=== PATIENT | male | born 1950 | race African-American/Black ===

== ENCOUNTER 2016-07-20 16:16 | Inpatient (IN) | payer MEDICARE, OTHER ==
[~2016-07-20] VITALS: Ht 182.9 cm; Wt 94.4 kg
[~2016-07-20 16:16] MED LIST: ALBU2.5V5 NEB; ALBU8.5H6 IH; ALBU8.5H6 INH; ATROVENT HFA12.9 GM IH; AZIT250T PO; BUDE10.2 IH; BUDE10.22 IH; CETI10TA22 PO; CIPR500T94 PO; DIAZ2TAB PO; DOXY100T PO; FLUT16SP NS; GUAI12003 PO; GUAI600T38 PO; IPRA3AMP23 IH; IPRA4AER IH; LEVO500T38 PO; MONT10TA6 PO; OXYC-323 PO; PRED-220 PO; PRED20TA PO; PRED5TAB PO; combivent; duoneb; symbicort
[2016-07-20 17:39] LABS: BASO # 0.1 x10^3/uL (0.0-0.2); BASO % 1 % (0-3); EOS % 12 % (0-3); HEMATOCRIT 45.7 % (39.0-53.0); HEMOGLOBIN 15.2 g/dL (13.0-17.5); LYMPH # 1.6 x10^3/uL (1.0-4.8); LYMPH % 25 % (24-48); MEAN CORPUSCULAR HEMOGLOBIN 29 pg (25-35); MEAN CORPUSCULAR HGB CONC 33 g/dL (31-37); MEAN CORPUSCULAR VOLUME 88 fL (79-100); MONO % 8 % (0-9); NEUT % 54 % (31-73); PLATELET COUNT 256 x10^3/uL (140-400); RED BLOOD COUNT 5.18 x10^6/uL (4.30-5.70); RED CELL DISTRIBUTION WIDTH 14.8 % (11.5-14.5); WHITE BLOOD COUNT 6.4 x10^3/uL (4.0-11.0)
[2016-07-20 17:46] LABS: CALCIUM 9.1 mg/dL (8.5-10.1); CREATININE 1.2 mg/dL (0.7-1.3); GFR 72.9
--- NOTE | 2016-07-20 17:48 | ED.ADGEN ---
Past Medical History Past Medical History: Cancer, CHF, COPD, Other Additional Past Medical Histor: seasonal allergies, PROSTATE CANCER, RESP FAILURE Past Surgical History: Other Additional Past Surgical Histo: craniotomy,hemorrhoidectomy,L knee, scar tissur removed throat/neck,back Alcohol Use: Occasionally Drug Use: None Adult General Chief Complaint Chief Complaint: SORE THROAT HPI HPI Patient is a 66 year old man, history of COPD, CHF, prostate cancer, hypertension, who presents to the emergency department with complaint of chest congestion and cough for the past week, with progressive shortness of breath. He denies any chest pain, states he has some abdominal pain with coughing, cough as wrecked above white sputum, denies any weakness in this or tingling, any injuries, states today he began today lightheaded at times with ambulation, no syncope. No swelling extremities, recent travel or surgery, history of DVT or PE. He states that he's previously experienced pneumonia and is concerned that is recurrent pneumonia at this time. He did not receive a flu vaccination this year. States he is not compliant with his inhalers other medications, without relief, was last admitted to the hospital for a COPD/bronchitis episode about 3 months ago and was on antibiotics and steroids at that time. Review of Systems Review of Systems Constitutional: Denies fever or chills. [] Eyes: Denies change in visual acuity. [] HENT: Nasal congestion and sore throat. [] Respiratory: Cough and shortness of breath. Cardiovascular: Denies chest pain or edema. [] GI: Denies abdominal pain, nausea, vomiting, bloody stools or diarrhea. [] : Denies dysuria. [] Musculoskeletal: Denies back pain or joint pain. [] Integument: Denies rash. [] Neurologic: Denies headache, focal weakness or sensory changes. [] Endocrine: Denies polyuria or polydipsia. [] Lymphatic: Denies swollen glands. [] Psychiatric: Denies depression or anxiety. [] Current Medications Current Medications Current Medications Medications (Trade) Dose Ordered Sig/Rohit Start Time Stop Time Status Last Admin Dose Admin Albuterol/ Ipratropium (Duoneb) 3 ml 1X ONCE 07/20/16 18:00 07/20/16 18:01 DC 07/20/16 18:11 3 ML Methylprednisolone Sodium Succinate (Solu-Medrol 125mg Vial) 125 mg 1X ONCE 1/8/17 18:00 07/20/16 18:01 DC 07/20/16 17:51 125 MG Allergies Allergies Allergies Coded Allergies Type Severity Reaction Last Updated Verified codeine Allergy Intermediate "i dont know they just tell me that" 04/03/15 Yes Physical Exam Physical Exam Constitutional: Well developed, well nourished, no acute distress, non-toxic appearance. [] HENT: Normocephalic, atraumatic, bilateral external ears normal, oropharynx moist, no oral exudates, nose normal. [] Eyes: PERRLA, EOMI, conjunctiva normal, no discharge. [] Neck: Normal range of motion, no tenderness, supple, no stridor. [] Cardiovascular:Heart rate regular rhythm, no murmur , S1, S2, no rubs or gallops. [] Lungs & Thorax: Patient with coarse breath sounds, rhonchi and wheezing scattered throughout.] No tenderness or crepitus. Abdomen: Bowel sounds normal, soft, no tenderness, no masses, no rebound, rigidity or guarding, no pulsatile masses. [] Skin: Warm, dry, no erythema, no rash. [] Back: No tenderness, no CVA tenderness. [] Extremities: No tenderness, no cyanosis, no clubbing, ROM intact, no edema. Negative Homans sign. [] Neurologic: Alert and oriented X 3, normal motor function, normal sensory function, no focal deficits noted. [] Psychologic: Affect normal, judgement normal, mood normal. [] Current Patient Data Vital Signs Vital Signs Date Time Temp Pulse Resp B/P Pulse Ox O2 Delivery O2 Flow Rate FiO2 07/20/16 18:12 91 Room Air 07/20/16 16:50 97.9 88 36 109/66 97.9 Lab Values Laboratory Tests Test 07/20/16 17:15 07/20/16 17:50 White Blood Count 6.4x10^3/uL (4.0-11.0) Red Blood Count 5.18x10^6/uL (4.30-5.70) Hemoglobin 15.2g/dL (13.0-17.5) Hematocrit 45.7% (39.0-53.0) Mean Corpuscular Volume 88fL (79-100) Mean Corpuscular Hemoglobin 29pg (25-35) Mean Corpuscular Hemoglobin Concent 33g/dL (31-37) Red Cell Distribution Width 14.8% (11.5-14.5) H Platelet Count 256x10^3/uL (140-400) Neutrophils (%) (Auto) 54% (31-73) Lymphocytes (%) (Auto) 25% (24-48) Monocytes (%) (Auto) 8% (0-9) Eosinophils (%) (Auto) 12% (0-3) H Basophils (%) (Auto) 1% (0-3) Neutrophils # (Auto) 3.4x10^3uL (1.8-7.7) Lymphocytes # (Auto) 1.6x10^3/uL (1.0-4.8) Monocytes # (Auto) 0.5x10^3/uL (0.0-1.1) Eosinophils # (Auto) 0.8x10^3/uL (0.0-0.7) H Basophils # (Auto) 0.1x10^3/uL (0.0-0.2) Sodium Level 142mmol/L (136-145) Potassium Level 4.0mmol/L (3.5-5.1) Chloride Level 103mmol/L (98-107) Carbon Dioxide Level 25mmol/L (21-32) Anion Gap 14 (6-14) Blood Urea Nitrogen 12mg/dL (8-26) Creatinine 1.2mg/dL (0.7-1.3) Estimated GFR (Cockcroft-Gault) 72.9 BUN/Creatinine Ratio 10 (6-20) Glucose Level 103mg/dL (70-99) H Calcium Level 9.1mg/dL (8.5-10.1) Total Bilirubin 0.8mg/dL (0.2-1.0) Aspartate Amino Transferase (AST) 19U/L (15-37) Alanine Aminotransferase (ALT) 20U/L (16-63) Alkaline Phosphatase 129U/L (46-116) H Troponin I Quantitative < 0.017ng/mL (0.000-0.055) DS-Jww-G-Type Natriuretic Peptide 100pg/mL (0-124) Total Protein 7.3g/dL (6.4-8.2) Albumin 3.9g/dL (3.4-5.0) Albumin/Globulin Ratio 1.1 (1.0-1.7) Influenza Type A Antigen Negative (NEGATIVE) Influenza Type B Antigen Negative (NEGATIVE) Laboratory Tests 07/20/16 17:15 Laboratory Tests 07/20/16 17:15 EKG EKG EC: Sinus rhythm, heart rate 78 beats/minute, low limb lead voltage, contour abnormalities noted in the anterior lateral leads, QTc of 476, GA 182, QRS is 78, moderate baseline artifact noted, but no ST elevations or depressions identified. Abnormal ECG, does not meet STEMI criteria. As interpreted by me. Radiology/Procedures Radiology/Procedures Chest x-ray: One view: Normal cardiac silhouette, hyperinflation, no infiltrates , no effusions, no soft tissue or bony abnormalities identified. As interpreted by me. Course & Med Decision Making Course & Med Decision Making Pertinent Labs and Imaging studies reviewed. (See chart for details) Patient noted to have dyspnea on exertion with mild tachypnea upon arrival, although his saturation is in the mid 90s. He did receive respiratory treatment , with evidence of significant coarse breath sounds bilaterally. Also received Solu-Medrol in the ED, x-ray telemetry studies obtained, and imaging laboratory studies do not reveal anything acutely concerning however after receiving this treatment, patient remains tachypnea, dyspnea, oxygen saturation drops down to 89% with any activity and patient complains of significant symptoms. Evaluation is consistent with likely COPD exacerbation from a viral illness, patient states that he is agreeable for admission to the hospital for management of his symptoms, and evaluation by pulmonary critical care, which is occurred previously when he has had similar episodes. Findings as above discussed with Dr. Rai, on-call for the patient's primary care provider Dr. De Los Santos, patient accepted to his service as a full admission to the medical telemetry floor, with supportive treatments, nebulizers, steroids, and supplemental oxygen as needed. Dragon Disclaimer Dragon Disclaimer This electronic medical record was generated, in whole or in part, using a voice recognition dictation system. Departure Impression: Primary Impression: COPD exacerbation Additional Impression: Viral illness Disposition: 09 ADMITTED INPATIENT Admitting Physician: Dagoberto Rai Condition: STABLE Problem Qualifiers RAHUL BLUNT DO Jul 20, 2016 17:48
[2016-07-20 17:51] LABS: ALBUMIN 3.9 g/dL (3.4-5.0); ALBUMIN/GLOBULIN RATIO 1.1 (1.0-1.7); TOTAL BILIRUBIN 0.8 mg/dL (0.2-1.0); TOTAL PROTEIN 7.3 g/dL (6.4-8.2)
[2016-07-20] MEDS ORDERED: methylPREDNISolone SOD SUCC PF 125 MG/2 ML VIAL. IV ONE (18:00)
[2016-07-20] MEDS ORDERED: IPRATRPIUM/ALBUTEROL 0.5/2.5MG 3 ML NEBU. NEB ONE (18:00)
[2016-07-20 18:21] LABS: OBC FLU VALID
--- NOTE | 2016-07-20 18:56 | EKG ---
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
[2016-07-20] MEDS ORDERED: ONDANSETRON PF 4 MG/2 ML VIAL. IV PRN (20:15)
[2016-07-20] MEDS ORDERED: ACETAMINOPHEN 325 MG TABLET. PO PRN (20:15)
[2016-07-20] MEDS: methylPREDNISolone SOD SUCC PF 40 MG/ML VIAL. IV SCH (21:37)
[2016-07-20 21:40] VITALS: BP 98/68
[2016-07-20 23:00] VITALS: BP 115/75
[2016-07-20] MEDS ORDERED: INFLUENZA VAX SCREEN BY RX. MC ONE (23:45)
[2016-07-21] MEDS ORDERED: ALBUTEROL SULFATE 2.5 MG/3 ML NEBU. NEB PRN (01:45)
[2016-07-21 03:00] VITALS: BP 96/60
[2016-07-21] MEDS: methylPREDNISolone SOD SUCC PF 40 MG/ML VIAL. IV SCH ×3 (05:09→20:36)
[2016-07-21 06:29] LABS: BASO % 0 % (0-3); EOS % 0 % (0-3); HEMATOCRIT 43.8 % (39.0-53.0); HEMOGLOBIN 14.7 g/dL (13.0-17.5); LYMPH # 0.7 x10^3/uL (1.0-4.8); LYMPH % 14 % (24-48); MEAN CORPUSCULAR HEMOGLOBIN 30 pg (25-35); MEAN CORPUSCULAR HGB CONC 34 g/dL (31-37); MEAN CORPUSCULAR VOLUME 88 fL (79-100); MONO % 2 % (0-9); NEUT % 84 % (31-73); PLATELET COUNT 264 x10^3/uL (140-400); RED BLOOD COUNT 4.98 x10^6/uL (4.30-5.70); RED CELL DISTRIBUTION WIDTH 14.5 % (11.5-14.5); WHITE BLOOD COUNT 4.7 x10^3/uL (4.0-11.0)
[2016-07-21 06:44] LABS: CALCIUM 9.2 mg/dL (8.5-10.1); CREATININE 1.1 mg/dL (0.7-1.3); GFR 80.5; POTASSIUM 4.8 mmol/L (3.5-5.1)
[2016-07-21 07:00] VITALS: BP 106/65
[2016-07-21] MEDS ORDERED: IPRATRPIUM/ALBUTEROL 0.5/2.5MG 3 ML NEBU. NEB SCH (08:00)
--- NOTE | 2016-07-21 08:07 | RAD ---
EXAM: Chest, single view. HISTORY: Shortness of air. COMPARISON: 05/15/2016. FINDINGS: A frontal view of the chest is obtained. There is no infiltrate, effusion or pneumothorax. The heart is normal in size. IMPRESSION: No acute pulmonary finding.
--- NOTE | 2016-07-21 08:40 | PDOC ---
Provider Note Provider Note See admission H&P dictation #[id number] Impression: 1. COPD acute exacerbation: 2. Allergic rhinitis: 3. History of prostate cancer: 4. History of substance abuse, none recently per patient: ROGER JENKINS MD Jul 21, 2016 08:40
[2016-07-21] MEDS ORDERED: FLU VACC QUAD 2016-17 (36MOS+)/PF 0.5 ML SYRINGE. VAX IM ONE (09:00)
[2016-07-21 11:00] VITALS: BP 109/63
[2016-07-21] MEDS: IPRATRPIUM/ALBUTEROL 0.5/2.5MG 3 ML NEBU. NEB SCH ×3 (11:21→20:37)
[2016-07-21 12:27] LABS: NEGATIVE OBC STREP NEG; POSITIVE OBC STREP POS
[2016-07-21 15:00] VITALS: BP 92/57
[2016-07-21] MEDS: MONTELUKAST SODIUM 10 MG TABLET. PO SCH (16:37)
[2016-07-21] MEDS: GUAIFENESIN DM 200MG/20MG 10 ML SYRUP. PO PRN ×2 (16:50→20:36)
[2016-07-21] MEDS: FLUTICASONE 50MCG/NASAL SPRAY 16GM BOTTLE. NS SCH (16:53)
[2016-07-21 19:00] VITALS: BP 94/60
[2016-07-21] MEDS: BUDESONIDE 0.5 MG/2 ML NEBU NEB SCH (20:37)
[2016-07-21 23:00] VITALS: BP 107/73
[2016-07-22 03:00] VITALS: BP 96/60
[2016-07-22] MEDS: GUAIFENESIN DM 200MG/20MG 10 ML SYRUP. PO PRN (03:55)
[2016-07-22] MEDS: methylPREDNISolone SOD SUCC PF 40 MG/ML VIAL. IV SCH ×3 (06:00→20:42)
[2016-07-22 07:00] VITALS: BP 107/70
[2016-07-22] MEDS: MONTELUKAST SODIUM 10 MG TABLET. PO SCH (07:27)
[2016-07-22] MEDS: FLUTICASONE 50MCG/NASAL SPRAY 16GM BOTTLE. NS SCH (07:27)
[2016-07-22] MEDS: BUDESONIDE 0.5 MG/2 ML NEBU NEB SCH ×2 (08:17→19:18)
[2016-07-22] MEDS: IPRATRPIUM/ALBUTEROL 0.5/2.5MG 3 ML NEBU. NEB SCH ×4 (08:17→19:18)
[2016-07-22 11:53] VITALS: BP 102/60
[2016-07-22 15:37] VITALS: BP 105/59
--- NOTE | 2016-07-22 16:44 | PDOC ---
SUBJECTIVE Subjective Cough is less. Still little bit productive at times. Still short of breath especially when up walking around. He has been able to ambulate some. Feels like he is making improvement. Eating and drinking okay. OBJECTIVE Vital Signs Vital Signs Date Time Temp Pulse Resp B/P Pulse Ox O2 Delivery O2 Flow Rate FiO2 07/22/16 15:37 97.9 104 17 105/59 92 Room Air 97.9 07/22/16 12:25 Room Air 07/22/16 11:53 97.9 100 18 102/60 93 Room Air 97.9 07/22/16 08:21 96 Room Air 07/22/16 08:19 96 Room Air 07/22/16 08:00 Room Air 07/22/16 07:00 97.7 89 18 107/70 89 Room Air 97.7 07/22/16 03:00 98.2 100 21 96/60 90 Room Air 98.2 07/21/16 23:00 98.9 86 19 107/73 90 Room Air 98.9 07/21/16 20:40 94 Room Air 07/21/16 20:38 94 Room Air 07/21/16 19:20 Room Air 07/21/16 19:00 99.2 101 19 94/60 88 Room Air 99.2 I & O Intake and Output 07/22/16 07:00 Intake Total 600 ml Balance 600 ml Intake Oral 600 ml # Voids 2 PHYSICAL EXAM Physical Exam General: No acute distress. Mental status: Alert and oriented. Chest: Decreased air movement throughout. Diffuse bilateral wheezes. No rales. CV: Normal rate. Regular rhythm. No murmur. Abdomen: Normal bowel sounds. Soft. Not distended. No tenderness. No guarding. No rebound. Extremities: No lower extremity edema ASSESSMENT/PLAN Assessment/Plan 1. COPD acute exacerbation: Making some improvement. Continue IV steroids. Continue frequent breathing treatments and inhaled steroids. Encouraged ambulation. See how he is doing tomorrow and possible discharge tomorrow or the next day if continues to make improvement. 2. Allergic rhinitis: Continue current medications. 3. History of prostate cancer: Stable. 4. History of substance abuse, none recently per patient: Stable. Problems: ROGER JENKINS MD Jul 22, 2016 16:44
[2016-07-22 19:00] VITALS: BP 105/61
[2016-07-22] MEDS: ZOLPIDEM 5 MG TABLET. PO PRN (22:16)
[2016-07-22 23:00] VITALS: BP 93/66
[2016-07-23 03:00] VITALS: BP 96/64
[2016-07-23] MEDS: methylPREDNISolone SOD SUCC PF 40 MG/ML VIAL. IV SCH ×3 (06:10→21:30)
[2016-07-23 07:50] VITALS: BP 111/66
[2016-07-23] MEDS: IPRATRPIUM/ALBUTEROL 0.5/2.5MG 3 ML NEBU. NEB SCH ×4 (08:09→19:47)
[2016-07-23] MEDS: BUDESONIDE 0.5 MG/2 ML NEBU NEB SCH ×2 (08:10→19:47)
--- NOTE | 2016-07-23 08:12 | PDOC ---
SUBJECTIVE Subjective Still short of breath with ambulation. Still with a cough that is minimally productive. Tolerating his diet without any difficulty. Voiding okay. OBJECTIVE Vital Signs Vital Signs Date Time Temp Pulse Resp B/P Pulse Ox O2 Delivery O2 Flow Rate FiO2 07/23/16 03:00 98.0 88 18 96/64 93 Room Air 98.0 07/22/16 23:00 97.6 97 18 93/66 93 Room Air 97.6 07/22/16 20:00 Room Air 07/22/16 19:18 99 Room Air 07/22/16 19:00 97.9 103 18 105/61 92 Room Air 97.9 07/22/16 16:59 Room Air 07/22/16 15:37 97.9 104 17 105/59 92 Room Air 97.9 07/22/16 12:25 Room Air 07/22/16 11:53 97.9 100 18 102/60 93 Room Air 97.9 07/22/16 08:21 96 Room Air 07/22/16 08:19 96 Room Air I & O Intake and Output 07/23/16 07:00 Intake Total 670 ml Balance 670 ml Intake Oral 670 ml # Voids 6 PHYSICAL EXAM Physical Exam General: No acute distress. Laying in bed. Mental status: Alert and oriented. Chest: Decreased air movement throughout. Diffuse bilateral wheezes, slightly less today. Coarse rales on the right mid chest. CV: Normal rate. Regular rhythm. No murmur. Abdomen: Normal bowel sounds. Soft. Not distended. No tenderness. No guarding. No rebound. Extremities: No lower extremity edema ASSESSMENT/PLAN Assessment/Plan 1. COPD acute exacerbation: Symptomatically some improvement but O2 sats a little bit worse. Continue IV steroids. Continue frequent breathing treatments and inhaled steroids. Encouraged ambulation. Repeat chest x-ray, PA and lateral , today since he is fairly coarse on the right side. 2. Allergic rhinitis: Continue current medications. 3. History of prostate cancer: Stable. 4. History of substance abuse, none recently per patient: Stable. 5. Disposition: We'll see how he does with ambulation today. May need to do 6 minute walk test prior to discharge. Most likely plan for discharge tomorrow. Problems: ROGER JENKINS MD Jul 23, 2016 08:12
--- NOTE | 2016-07-23 09:54 | RAD ---
EXAM: Chest, 2 views. HISTORY: Dyspnea. COMPARISON: 07/20/2016. FINDINGS: Frontal and lateral views of the chest are obtained. There is right lower lobe opacity likely due to atelectasis. There is no consolidation, effusion or pneumothorax. The heart is normal in size. IMPRESSION: No acute pulmonary finding.
[2016-07-23] MEDS: MONTELUKAST SODIUM 10 MG TABLET. PO SCH (10:00)
[2016-07-23] MEDS: FLUTICASONE 50MCG/NASAL SPRAY 16GM BOTTLE. NS SCH (10:00)
[2016-07-23 10:50] VITALS: BP 116/68
[2016-07-23 14:50] VITALS: BP 109/62
[2016-07-23 19:00] VITALS: BP 115/70
[2016-07-23] MEDS: ZOLPIDEM 5 MG TABLET. PO PRN (21:30)
[2016-07-23 23:00] VITALS: BP 120/80
[2016-07-24 03:00] VITALS: BP 103/58
[2016-07-24] MEDS: methylPREDNISolone SOD SUCC PF 40 MG/ML VIAL. IV SCH (05:40)
[2016-07-24 07:00] VITALS: BP 114/70
[2016-07-24] MEDS: IPRATRPIUM/ALBUTEROL 0.5/2.5MG 3 ML NEBU. NEB SCH ×2 (07:06→11:05)
[2016-07-24] MEDS: BUDESONIDE 0.5 MG/2 ML NEBU NEB SCH (07:06)
--- NOTE | 2016-07-24 07:41 | DISCH ---
DISCHARGE INSTRUCTIONS Condition on Discharge Condition on Discharge: Stable Activity After Discharge Activity Instructions for Disc: Activity as tolerated Diet after Discharge Diet after Discharge: Regular Contacting the DR. after DC Call your doctor for: If your condition worsens Follow-Up Follow up with: Dr Jenkins in 1 week. call for appt Treatment/Equipment after DC Discharge Respiratory Equipmen: Nebulizer (has at home) ROGER JENKINS MD Jul 24, 2016 07:41
[2016-07-24] MEDS ORDERED: IPRA3AMP NEB (07:48)
[2016-07-24] MEDS ORDERED: PRED20TA PO (07:48)
--- NOTE | 2016-07-24 08:03 | PDOC ---
Provider Note Provider Note See discharge summary dictation #[id number] ROGER JENKINS MD Jul 24, 2016 08:03
[2016-07-24] MEDS: FLUTICASONE 50MCG/NASAL SPRAY 16GM BOTTLE. NS SCH (08:42)
[2016-07-24] MEDS: MONTELUKAST SODIUM 10 MG TABLET. PO SCH (08:42)
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
[2016-07-24 11:11] VITALS: BP 112/56
--- NOTE | 2016-07-24 20:02 | DS ---
DATE OF DISCHARGE: 07/24/2016 ATTENDING PHYSICIAN: Roger Jenkins MD CHIEF COMPLAINT: Shortness of breath. HISTORY OF PRESENT ILLNESS: The patient is a 66-year-old male with a history of COPD and allergic rhinitis who had been worsening over the past week with his respiratory status. He became more short of breath. He was then exposed to significant cold temperatures outside for a period of time, which seemed to worsen his breathing and caused more dyspnea. He presented to the Emergency Room for further evaluation. HOSPITAL COURSE: The patient was seen in the Emergency Room. He was having oxygen saturations down to 89% when he tried to ambulate and had significant shortness of breath with that. EKG and troponins were negative. Chest x-ray did not show any acute infiltrate. His symptoms were consistent with recurrent acute exacerbation of his COPD. He was placed on nebulizer treatments frequently which he is not using at home as well as IV steroids. He had improvement in his symptoms. He had less wheezing. He was moving air better. He was able to ambulate without difficulty at the time of discharge. This cough was not significantly productive throughout the hospitalization. At the time of discharge, the patient was tolerating his diet without difficulty. He was ambulating in the hallways without supplemental oxygen. PHYSICAL EXAMINATION: VITAL SIGNS: He was afebrile. His vital signs were stable. GENERAL: He was alert, in no distress. CHEST: Had improved air movement. It was clear without any significant wheezes or rales. Repeat chest x-ray with PA and lateral did not show any infiltrate or abnormality except for possibly some atelectasis. HEART: Had a regular rate and rhythm. EXTREMITIES: Without edema. DISCHARGE DIAGNOSES. 1. Chronic obstructive pulmonary disease with acute exacerbation. 2. Allergic rhinitis. 3. History of prostate cancer. 4. History of substance abuse with cocaine, but none in the recent past. DISCHARGE DIET: Regular diet. DISCHARGE ACTIVITIES: As tolerated. FOLLOWUP: The patient is to follow up with myself in approximately 1 week. DISCHARGE MEDICATIONS: Symbicort 160/4.5 two puffs b.i.d., Flonase 2 sprays daily, DuoNeb q.i.d., Combivent b.i.d., Singulair 10 mg p.o. daily, prednisone 40 mg p.o. daily x 3 days, then 20 mg daily x 3 days, then 10 mg daily x 2 days. ROGER JENKINS MD DR: Rebeca JOB#: [id number] / [id number]
== END 2016-07-24 12:35 | disposition home or self-care (01) | DRG 189 ==
LOC: ER 16:16 → 5 NORTH 19:33
PROVIDERS: ADMIT Family Medicine; ATTEND Family Medicine
DX: J96.00 Acute respiratory failure, unspecified whether with hypoxia or hypercapnia (principal); J44.1 Chronic obstructive pulmonary disease with (acute) exacerbation; J30.9 Allergic rhinitis, unspecified; I11.0 Hypertensive heart disease with heart failure; I50.9 Heart failure, unspecified; M19.90 Unspecified osteoarthritis, unspecified site; Z80.0 Family history of malignant neoplasm of digestive organs; Z83.3 Family history of diabetes mellitus; Z85.46 Personal history of malignant neoplasm of prostate; Z86.010 Personal history of colon polyps; Z92.3 Personal history of irradiation; Z93.0 Tracheostomy status; Z87.01 Personal history of pneumonia (recurrent); Z88.6 Allergy status to analgesic agent
CPT/HCPCS: 36415; 71010; 71020; 80048; 80053; 83880; 84484; 85027; 87070; 87804; 87880; 90686; 93005; 94250; 94640; 94760; 96374; J2920; J2930; J7620; 99285-25

== ENCOUNTER 2016-09-04 21:57 | Inpatient (IN) | payer MEDICARE ==
[~2016-09-04] VITALS: Ht 182.9 cm; Wt 94.3 kg
[~2016-09-04 21:57] MED LIST changes: +IPRA3AMP NEB
[2016-09-04] MEDS ORDERED: IV NORMAL SALINE 1000ML BAG 1,000 ML IV ONE (22:15)
--- NOTE | 2016-09-04 22:17 | PHYS DOC ---
Past Medical History Past Medical History: Cancer, CHF, COPD, Other Additional Past Medical Histor: seasonal allergies, PROSTATE CANCER, RESP FAILURE Past Surgical History: Other Additional Past Surgical Histo: craniotomy,hemorrhoidectomy,L knee, scar tissur removed throat/neck,back Alcohol Use: Occasionally Drug Use: None Adult General Chief Complaint Chief Complaint: FLU SYMPTOM HPI HPI 66-year-old male with known history of COPD who states for the last several days he's had cough, headache, nausea with several episodes of vomiting and decreased appetite as well and diffuse body aches. He states he has been exposed to influenza over the last several days as well with several family members that tested positive. He claims significant chest pain and shortness of breath despite using his nebulizers at home. He rates his bodyaches and chest pain at a 6/10 on the pain scale. Pt is speaking in complete sentences and in no signs of respiratory distress at this time. Review of Systems Review of Systems Constitutional: Has fever and chills [] Eyes: Denies change in visual acuity, redness, or eye pain [] HENT: Denies nasal congestion or sore throat [] Respiratory: Has cough, has shortness of breath [] Cardiovascular: No additional information not addressed in HPI [] GI: Denies abdominal pain, nausea, vomiting, bloody stools or diarrhea [] : Denies dysuria or hematuria [] Musculoskeletal: Denies back pain, has joint pain [] Integument: Denies rash or skin lesions [] Neurologic: Denies headache, focal weakness or sensory changes [] Endocrine: Denies polyuria or polydipsia [] Current Medications Current Medications Current Medications Medications (Trade) Dose Ordered Sig/Rohit Start Time Stop Time Status Last Admin Dose Admin Sodium Chloride (Iv Sodium Chloride 0.9% 1000ml Bag) 1,000 ml @ 1,000 mls/hr 1X ONCE 09/04/16 22:15 09/04/16 23:14 DC 09/04/16 22:25 1,000 MLS/HR Allergies Allergies Allergies Coded Allergies Type Severity Reaction Last Updated Verified codeine Allergy Intermediate "i dont know they just tell me that" 04/03/15 Yes Physical Exam Physical Exam Constitutional: Well developed, well nourished, no acute distress, non-toxic appearance. [] HENT: Normocephalic, atraumatic, bilateral external ears normal, oropharynx moist, no oral exudates, nose normal. [] Eyes: PERRLA, EOMI, conjunctiva normal, no discharge. [] Neck: Normal range of motion, no tenderness, supple, no stridor. [] Cardiovascular:Heart rate tachycardic with regular rhythm, no murmur [] Lungs & Thorax: Bilateral expiratory wheezes heard with no significant respiratory distress [] Abdomen: Bowel sounds normal, soft, no tenderness, no masses, no pulsatile masses. [] Skin: Warm, dry, no erythema, no rash. [] Back: No tenderness, no CVA tenderness. [] Extremities: No tenderness, no cyanosis, no clubbing, ROM intact, no edema. [] Neurologic: Alert and oriented X 3, normal motor function, normal sensory function, no focal deficits noted. [] Psychologic: Affect normal, judgement normal, mood normal. [] Current Patient Data Vital Signs Vital Signs Date Time Temp Pulse Resp B/P Pulse Ox O2 Delivery O2 Flow Rate FiO2 09/04/16 22:06 99.9 115 18 123/91 96 Room Air 99.9 Lab Values Laboratory Tests Test 09/04/16 22:15 09/04/16 22:23 White Blood Count 5.3x10^3/uL (4.0-11.0) Red Blood Count 5.23x10^6/uL (4.30-5.70) Hemoglobin 15.2g/dL (13.0-17.5) Hematocrit 45.5% (39.0-53.0) Mean Corpuscular Volume 87fL (79-100) Mean Corpuscular Hemoglobin 29pg (25-35) Mean Corpuscular Hemoglobin Concent 33g/dL (31-37) Red Cell Distribution Width 14.6% (11.5-14.5) H Platelet Count 244x10^3/uL (140-400) Neutrophils (%) (Auto) 61% (31-73) Lymphocytes (%) (Auto) 22% (24-48) L Monocytes (%) (Auto) 13% (0-9) H Eosinophils (%) (Auto) 3% (0-3) Basophils (%) (Auto) 1% (0-3) Neutrophils # (Auto) 3.2x10^3uL (1.8-7.7) Lymphocytes # (Auto) 1.2x10^3/uL (1.0-4.8) Monocytes # (Auto) 0.7x10^3/uL (0.0-1.1) Eosinophils # (Auto) 0.1x10^3/uL (0.0-0.7) Basophils # (Auto) 0.1x10^3/uL (0.0-0.2) Sodium Level 139mmol/L (136-145) Potassium Level 3.9mmol/L (3.5-5.1) Chloride Level 102mmol/L (98-107) Carbon Dioxide Level 26mmol/L (21-32) Anion Gap 11 (6-14) Blood Urea Nitrogen 10mg/dL (8-26) Creatinine 1.3mg/dL (0.7-1.3) Estimated GFR (Cockcroft-Gault) 66.4 Glucose Level 104mg/dL (70-99) H Calcium Level 9.2mg/dL (8.5-10.1) Troponin I Quantitative < 0.017ng/mL (0.000-0.055) Influenza Type A Antigen Positive (NEGATIVE) Influenza Type B Antigen Negative (NEGATIVE) Laboratory Tests 09/04/16 22:15 Laboratory Tests 09/04/16 22:15 EKG EKG EKG as interpreted by me shows a sinus tachycardia with a rate of 105 bpm. Intervals are normal. There are no obvious signs of ischemia. Radiology/Procedures Radiology/Procedures Portable one view of the chest as interpreted by me shows no acute cardiopulmonary process. Course & Med Decision Making Course & Med Decision Making Pertinent Labs and Imaging studies reviewed. (See chart for details) This 66-year-old male with flulike illness and significant chest pain or shortness of breath likely be admitted to the hospital for further evaluation and treatment. I will obtain full laboratory workup including influenza swabs. A DuoNeb will be administered as well as a fluid bolus and Zofran. I will obtain a chest x-ray. His EKG at this time does not reveal any overt signs of ischemia. Portable one view of his chest was unremarkable. His laboratory workup is unrevealing besides positive influenza A swab. Patient is still symptomatically short of breath and will be admitted with a dose of Tamiflu given. IV steroids will also be ordered. I will order repeat troponins for the floor for his ongoing chest pain as well as as needed DuoNeb therapy. The need for admission will be communicated to Dr. Avery. Pt was given multiple breathing treatments and a dose of Tamiflu while in the department. He was admitted without incident. Dragon Disclaimer Dragon Disclaimer This electronic medical record was generated, in whole or in part, using a voice recognition dictation system. Departure Departure Impression: Primary Impression: Influenza A Additional Impression: COPD exacerbation Disposition: ADMITTED INPATIENT Admitting Physician: Roger Jenkins Condition: STABLE Referrals: ROGER JENKINS MD (PCP) Problem Qualifiers IAN CHURCH DO Sep 04, 2016 22:16
[2016-09-04 22:22] LABS: BASO # 0.1 x10^3/uL (0.0-0.2); BASO % 1 % (0-3); EOS % 3 % (0-3); HEMATOCRIT 45.5 % (39.0-53.0); HEMOGLOBIN 15.2 g/dL (13.0-17.5); LYMPH # 1.2 x10^3/uL (1.0-4.8); LYMPH % 22 % (24-48); MEAN CORPUSCULAR HEMOGLOBIN 29 pg (25-35); MEAN CORPUSCULAR HGB CONC 33 g/dL (31-37); MEAN CORPUSCULAR VOLUME 87 fL (79-100); MONO % 13 % (0-9); NEUT % 61 % (31-73); PLATELET COUNT 244 x10^3/uL (140-400); RED BLOOD COUNT 5.23 x10^6/uL (4.30-5.70); RED CELL DISTRIBUTION WIDTH 14.6 % (11.5-14.5); WHITE BLOOD COUNT 5.3 x10^3/uL (4.0-11.0)
[2016-09-04] MEDS ORDERED: ONDANSETRON PF 4 MG/2 ML VIAL. IV ONE (22:30)
[2016-09-04] MEDS ORDERED: IPRATRPIUM/ALBUTEROL 0.5/2.5MG 3 ML NEBU. NEB ONE ×2 (22:30→23:15)
[2016-09-04] MEDS ORDERED: KETOROLAC TROMETHAMINE 30 MG/ML SYRINGE. IV ONE (22:30)
[2016-09-04 22:32] LABS: CALCIUM 9.2 mg/dL (8.5-10.1); CREATININE 1.3 mg/dL (0.7-1.3); GFR 66.4; POTASSIUM 3.9 mmol/L (3.5-5.1)
[2016-09-04 22:47] LABS: OBC FLU VALID
[2016-09-04] MEDS ORDERED: OSELTAMIVIR 75 MG CAPSULE PO ONE (23:00)
[2016-09-04] MEDS ORDERED: ONDANSETRON PF 4 MG/2 ML VIAL. IV PRN (23:00)
[2016-09-04] MEDS ORDERED: methylPREDNISolone SOD SUCC PF 125 MG/2 ML VIAL. IV ONE (23:15)
[2016-09-05] VITALS (7 sets, daily range): BP systolic 110–121; BP diastolic 55–80
[2016-09-05] MEDS: IV NORMAL SALINE 1000ML BAG 1,000 ML IV SCH ×3 (00:47→20:13)
--- NOTE | 2016-09-05 06:27 | EKG ---
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
[2016-09-05 06:56] LABS: BASO % 1 % (0-3); EOS % 0 % (0-3); HEMATOCRIT 44.4 % (39.0-53.0); HEMOGLOBIN 14.5 g/dL (13.0-17.5); LYMPH # 0.4 x10^3/uL (1.0-4.8); LYMPH % 9 % (24-48); MEAN CORPUSCULAR HEMOGLOBIN 29 pg (25-35); MEAN CORPUSCULAR HGB CONC 33 g/dL (31-37); MEAN CORPUSCULAR VOLUME 88 fL (79-100); MONO % 2 % (0-9); NEUT % 89 % (31-73); PLATELET COUNT 225 x10^3/uL (140-400); RED BLOOD COUNT 5.04 x10^6/uL (4.30-5.70)
[2016-09-05 07:19] LABS: CALCIUM 9.1 mg/dL (8.5-10.1); CREATININE 1.3 mg/dL (0.7-1.3); GFR 66.4; POTASSIUM 5.1 mmol/L (3.5-5.1)
--- NOTE | 2016-09-05 07:34 | RAD ---
EXAM: Chest one view. HISTORY: Flu like symptoms. COMPARISON: 07/23/2016. FINDINGS: A frontal view of the chest is obtained. There are mild interstitial opacities in the bases. There is no pneumothorax or pleural effusion. The heart is not enlarged. The aorta is tortuous. There are changes of chronic injury to the left coracoclavicular ligament. IMPRESSION: 1. Mild bibasilar interstitial opacities may indicate atelectasis. No confluent infiltrates.
[2016-09-05] MEDS ORDERED: IPRATRPIUM/ALBUTEROL 0.5/2.5MG 3 ML NEBU. NEB SCH (08:00)
[2016-09-05] MEDS ORDERED: ALBUTEROL SULFATE 2.5 MG/3 ML NEBU. NEB PRN (08:30)
--- NOTE | 2016-09-05 08:33 | PDOC1 ---
History and Physical Date of Admission Date of Admission DATE: 09/04/16 Identification/Chief Complaint Chief Complaint Cough, not feeling well Source Source: Patient History of Present Illness History of Present Illness Pt states that he has been sick since Thursday; cough was not improving, neither were his body aches and headaches so pt came to the ER. Pt tested positive for Flu A; states that he was around 2 friends that had been hospitalized for Influenza recently. He has had fevers, chills, sore throat, runny nose with clear to yellow drainage, cough that is productive with same color sputum, abdominal pain, nausea, vomiting and diarrhea. He last had vomiting and diarrhea this last Thursday. Past Medical History Cardiovascular: No pertinent hx Pulmonary: COPD, Previously Intubated, Pneumonia, Other CENTRAL NERVOUS SYSTEM: Seizure, Other GI: Hemorrhoids, Other Heme/Onc: No pertinent hx Hepatobiliary: No pertinent hx Psych: No pertinent hx Musculoskeletal: Osteoarthritis, Other Rheumatologic: No pertinent hx Infectious disease: No pertinent hx ENT: No pertinent hx Renal/: Prostate Ca., Other Endocrine: No pertinent hx Dermatology: No pertinent hx Past Surgical History Past Surgical History: Other (Craniotomy, Left knee surgery, tracheostomy with revision x2, hemorrhoidectomy) Family History Family History: Chronic Bronchitis (father), Diabetes (sister), Other (Lupus- mother, sister) Social History Smoke: Quit ALCOHOL: occassional Drugs: Cocaine Current Problem List Problem List Problems Medical Problems: (1) COPD exacerbation Status: Acute (2) Influenza A Status: Acute Problems: Current Medications Current Medications Current Medications Albuterol/ Ipratropium (Duoneb) 3 ml 1X ONCE NEB Last administered on 22:31; Start 09/04/16 at 22:30; Stop 09/04/16 at 22:31; Status DC Ondansetron HCl (Zofran) 4 mg 1X ONCE IV Last administered on 09/04/16 22:25 ; Start 09/04/16 at 22:30; Stop 09/04/16 at 22:31; Status DC Ketorolac Tromethamine 30 mg 30 mg 1X ONCE IV Last administered on 09/04/16 22:25; Start 09/04/16 at 22:30; Stop 09/04/16 at 22:31; Status DC Sodium Chloride (Iv Sodium Chloride 0.9% 1000ml Bag) 1,000 ml @ 1,000 mls/hr 1X ONCE IV Last administered on 09/04/16 22:25; Start 09/04/16 at 22:15; Stop 09/04/16 at 23:14; Status DC Oseltamivir Phosphate (Tamiflu) 75 mg ONCE ONCE PO Last administered on 23:12; Start 09/04/16 at 23:00; Stop 09/04/16 at 23:01; Status DC Ondansetron HCl 4 mg 4 mg PRN Q8HRS PRN IV NAUSEA/VOMITING; Start 09/04/16 at 23:00; Stop 09/05/16 at 22:59 Sodium Chloride (Iv Sodium Chloride 0.9% 1000ml Bag) 1,000 ml @ 100 mls/hr Q10H IV Last administered on 09/05/16 00:47; Start 09/04/16 at 23:00; Stop at 22:59 Albuterol/ Ipratropium (Duoneb) 3 ml RTQID NEB Last administered on 09/05/16 08:10; Start 09/05/16 at 08:00; Stop 09/06/16 at 07:59 Albuterol/ Ipratropium (Duoneb) 3 ml 1X ONCE NEB Last administered on 23:23; Start 09/04/16 at 23:15; Stop 09/04/16 at 23:16; Status DC Methylprednisolone Sodium Succinate (Solu-Medrol 125mg Vial) 125 mg 1X ONCE IV Last administered on 09/04/16 23:12; Start 09/04/16 at 23:15; Stop 09/04/16 at 23:16; Status DC Active Scripts Active Duoneb 0.5-3(2.5) Mg/3 Ml (Albuterol/Ipratropium) 3 Ml Ampul.neb 3 Ml NEB RTQID Symbicort 160-4.5 Mcg Inhaler (Budesonide/Formoterol Fumarate) 10.2 Gm Hfa.aer.ad 2 Puff IH BID Fluticasone Propionate Nasal Bloomingrose (Fluticasone Propionate) 1 Bloomingrose Bloomingrose 2 Bloomingrose NS DAILY Singulair Tablet (Montelukast Sodium) 10 Mg Tablet 10 Mg PO DAILY Reported Combivent Respimat Inhal (Ipratropium/Albuterol Sulfate) 4 Gm Aer.w.adap 1 Puff IH QID Allergies Allergies: Coded Allergies: codeine (Verified Allergy, Intermediate, "i dont know they just tell me that", 04/03/15) ROS General: YES: Chills, Fatigue, Night Sweats PSYCHOLOGICAL ROS: No: Anxiety, Depression Eyes: No Decreased vision, No Eye Pain HEENT: YES: Nasal congestion, Sore Throat ALLERGY AND IMMUNOLOGY: No: Hives, Post Nasal Drip Hematological and Lymphatic: No: Bleeding Problems, Blood Clots Respiratory: YES: Cough, Shortness of breath, Sputum Changes, Wheezing Cardiovascular: No Chest Pain, No Edema, No Palpitations Gastrointestinal: Yes Abdominal Pain, Yes Diarrhea, Yes Nausea, Yes Vomiting Genitourinary: No Dysuria, No Urgency Musculoskeletal: Yes Muscle Pain, No Joint Pain Neurological: No Impaired Coord/balance, No Numbness/Tingling Skin: No Rash, No Skin Lesion Changes Physical Exam General: Alert, Oriented X3, Cooperative, No acute distress HEENT: Atraumatic, PERRLA, EOMI, Mucous membr. moist/pink Lungs: Other (rhonchi throughout, more bilateral upper lobes) Heart: RRR, no rubs, no gallops, no murmurs Abdomen: Normal bowel sounds, Soft, No tenderness, No hepatosplenomegaly Extremities: No clubbing, No cyanosis, No edema, Normal pulses Skin: No rashes, No breakdown Neuro: Normal speech, Normal tone, Cranial nerves 3-12 NL Psych/Mental Status: Mental status NL, Mood NL Vitals Vitals Vital Signs Date Time Temp Pulse Resp B/P Pulse Ox O2 Delivery O2 Flow Rate FiO2 09/05/16 07:25 96.4 78 20 120/80 93 Room Air 96.4 Labs Labs Laboratory Tests Test 09/04/16 22:15 09/04/16 22:23 09/05/16 06:30 White Blood Count 5.3x10^3/uL (4.0-11.0) 5.0x10^3/uL (4.0-11.0) Red Blood Count 5.23x10^6/uL (4.30-5.70) 5.04x10^6/uL (4.30-5.70) Hemoglobin 15.2g/dL (13.0-17.5) 14.5g/dL (13.0-17.5) Hematocrit 45.5% (39.0-53.0) 44.4% (39.0-53.0) Mean Corpuscular Volume 87fL (79-100) 88fL (79-100) Mean Corpuscular Hemoglobin 29pg (25-35) 29pg (25-35) Mean Corpuscular Hemoglobin Concent 33g/dL (31-37) 33g/dL (31-37) Red Cell Distribution Width 14.6% (11.5-14.5) 15.0% (11.5-14.5) Platelet Count 244x10^3/uL (140-400) 225x10^3/uL (140-400) Neutrophils (%) (Auto) 61% (31-73) 89% (31-73) Lymphocytes (%) (Auto) 22% (24-48) 9% (24-48) Monocytes (%) (Auto) 13% (0-9) 2% (0-9) Eosinophils (%) (Auto) 3% (0-3) 0% (0-3) Basophils (%) (Auto) 1% (0-3) 1% (0-3) Neutrophils # (Auto) 3.2x10^3uL (1.8-7.7) 4.4x10^3uL (1.8-7.7) Lymphocytes # (Auto) 1.2x10^3/uL (1.0-4.8) 0.4x10^3/uL (1.0-4.8) Monocytes # (Auto) 0.7x10^3/uL (0.0-1.1) 0.1x10^3/uL (0.0-1.1) Eosinophils # (Auto) 0.1x10^3/uL (0.0-0.7) 0.0x10^3/uL (0.0-0.7) Basophils # (Auto) 0.1x10^3/uL (0.0-0.2) 0.0x10^3/uL (0.0-0.2) Sodium Level 139mmol/L (136-145) 140mmol/L (136-145) Potassium Level 3.9mmol/L (3.5-5.1) 5.1mmol/L (3.5-5.1) Chloride Level 102mmol/L (98-107) 105mmol/L (98-107) Carbon Dioxide Level 26mmol/L (21-32) 23mmol/L (21-32) Anion Gap 11 (6-14) 12 (6-14) Blood Urea Nitrogen 10mg/dL (8-26) 12mg/dL (8-26) Creatinine 1.3mg/dL (0.7-1.3) 1.3mg/dL (0.7-1.3) Estimated GFR (Cockcroft-Gault) 66.4 66.4 Glucose Level 104mg/dL (70-99) 176mg/dL (70-99) Calcium Level 9.2mg/dL (8.5-10.1) 9.1mg/dL (8.5-10.1) Troponin I Quantitative < 0.017ng/mL (0.000-0.055) < 0.017ng/mL (0.000-0.055) Influenza Type A Antigen Positive (NEGATIVE) Influenza Type B Antigen Negative (NEGATIVE) Laboratory Tests Test 09/04/16 22:15 09/04/16 22:23 09/05/16 06:30 White Blood Count 5.3x10^3/uL (4.0-11.0) 5.0x10^3/uL (4.0-11.0) Red Blood Count 5.23x10^6/uL (4.30-5.70) 5.04x10^6/uL (4.30-5.70) Hemoglobin 15.2g/dL (13.0-17.5) 14.5g/dL (13.0-17.5) Hematocrit 45.5% (39.0-53.0) 44.4% (39.0-53.0) Mean Corpuscular Volume 87fL (79-100) 88fL (79-100) Mean Corpuscular Hemoglobin 29pg (25-35) 29pg (25-35) Mean Corpuscular Hemoglobin Concent 33g/dL (31-37) 33g/dL (31-37) Red Cell Distribution Width 14.6% (11.5-14.5) 15.0% (11.5-14.5) Platelet Count 244x10^3/uL (140-400) 225x10^3/uL (140-400) Neutrophils (%) (Auto) 61% (31-73) 89% (31-73) Lymphocytes (%) (Auto) 22% (24-48) 9% (24-48) Monocytes (%) (Auto) 13% (0-9) 2% (0-9) Eosinophils (%) (Auto) 3% (0-3) 0% (0-3) Basophils (%) (Auto) 1% (0-3) 1% (0-3) Neutrophils # (Auto) 3.2x10^3uL (1.8-7.7) 4.4x10^3uL (1.8-7.7) Lymphocytes # (Auto) 1.2x10^3/uL (1.0-4.8) 0.4x10^3/uL (1.0-4.8) Monocytes # (Auto) 0.7x10^3/uL (0.0-1.1) 0.1x10^3/uL (0.0-1.1) Eosinophils # (Auto) 0.1x10^3/uL (0.0-0.7) 0.0x10^3/uL (0.0-0.7) Basophils # (Auto) 0.1x10^3/uL (0.0-0.2) 0.0x10^3/uL (0.0-0.2) Sodium Level 139mmol/L (136-145) 140mmol/L (136-145) Potassium Level 3.9mmol/L (3.5-5.1) 5.1mmol/L (3.5-5.1) Chloride Level 102mmol/L (98-107) 105mmol/L (98-107) Carbon Dioxide Level 26mmol/L (21-32) 23mmol/L (21-32) Anion Gap 11 (6-14) 12 (6-14) Blood Urea Nitrogen 10mg/dL (8-26) 12mg/dL (8-26) Creatinine 1.3mg/dL (0.7-1.3) 1.3mg/dL (0.7-1.3) Estimated GFR (Cockcroft-Gault) 66.4 66.4 Glucose Level 104mg/dL (70-99) 176mg/dL (70-99) Calcium Level 9.2mg/dL (8.5-10.1) 9.1mg/dL (8.5-10.1) Troponin I Quantitative < 0.017ng/mL (0.000-0.055) < 0.017ng/mL (0.000-0.055) Influenza Type A Antigen Positive (NEGATIVE) Influenza Type B Antigen Negative (NEGATIVE) VTE Prophylaxis Ordered VTE Prophylaxis Devices: Yes VTE Pharmacological Prophylaxi: Yes Assessment/Plan Assessment/Plan Pt is a 66yo AAM admitted for COPD Exacerbation 2/2 Influenza A 1)COPD Exacerbation- 2/2 Influenza A. Will start Prednisone and Tamiflu. Pt feeling better but does not feel ready to go home. Will hold off on antibiotics for now and not start if pt continues to improve 2)Hyperglycemia- likely 2/2 steroids. HbA1C pending DAJUAN GOMEZ MD Sep 05, 2016 08:33
[2016-09-05] MEDS: PREDNISONE 10 MG TABLET PO SCH (09:11)
[2016-09-05] MEDS: OSELTAMIVIR 75 MG CAPSULE PO SCH ×2 (09:13→20:12)
[2016-09-05] MEDS: MONTELUKAST SODIUM 10 MG TABLET. PO SCH (10:11)
[2016-09-05] MEDS: FLUTICASONE 50MCG/NASAL SPRAY 16GM BOTTLE. NS SCH (10:11)
[2016-09-05] MEDS: ACETAMINOPHEN 325 MG TABLET. PO PRN (10:12)
[2016-09-05] MEDS: BUDESONIDE 0.5 MG/2 ML NEBU NEB SCH ×2 (11:34→19:03)
[2016-09-05] MEDS: IPRATRPIUM/ALBUTEROL 0.5/2.5MG 3 ML NEBU. NEB SCH ×3 (11:42→19:03)
[2016-09-05 12:55] LABS: PLT ESTIMATE ADEQUATE (ADEQUATE)
--- NOTE | 2016-09-05 22:18 | ACF ---
Admission Forms Criteria COPD Clinical Indications for Admission to Inpatient Care (Place 'X' for any and all applicable criteria): Admission is indicated for ANY ONE of the following (1)(2)(3): [X]I. Acute exacerbation by high-risk comorbidity (e.g., pneumonia, dysrhythmia, heart failure, pleural effusion, pneumothorax) or severe underlying COPD (e.g., steroid dependent) [ ]II. Inpatient admission required rather than observation care (see Chronic Obstructive Pulmonary Disease: Observation Care) because of ANY ONE of the following: [ ]a) New or pre-existing signs or symptoms of COPD (eg, dyspnea or Tachypnea at rest or with minimal activity) that persist despite outpatient and observation care treatment [ ]b) New-onset hypoxemia (room air SaO2 less than 90%, PO2 less than 60 mm Hg (8.0 kPa)) that persists despite outpatient and observation care treatment [ ]c) Worsening of pre-existing hypoxemia (eg, new or increased requirement for supplemental oxygen to maintain oxygenation at baseline level) that persists despite outpatient and observation care treatment, with oxygen treatment needs performable only in acute inpatient setting [ ]d) Hypercarbia (PCO2 greater than 40 mm Hg (5.3 kPa))-induced respiratory acidosis (pH less than 7.35) that persists despite outpatient and observation care treatment [ ]e) Supplemental oxygen or respiratory treatments for over 24 hours that are performable only in acute inpatient setting [ ]f) Chest tube placement with active evacuation (e.g., suction, drainage) (5) [ ]g) Other condition, treatment or monitoring requiring inpatient admission [ ]III. Planned invasive surgical or diagnostic procedures requiring acute- care hospitalization [ ]IV. Acute respiratory failure (e.g., uncompensated hypercarbia, severe hypoxemia) [ ]V. Severe comorbid condition (e.g., severe steroid myopathy, acute vertebral fracture) that has acutely worsened pulmonary function [ ]. Confusion state, lethargy, obtundation, stupor or coma Extended stay beyond goal length of stay may be needed for (31)(32): [ ]a ) Respiratory Failure. [ ]b) Severe or persisting hypoxemia or hypercarbia [ ]c) Severe or persistent dyspnea [ ]d) Comorbidities (e.g. chronic heart failure, atrial fibrillation with rapid response, pneumonia) [ ]e) Malnutrition The original [facility] content created by [facility] has been revised. The portions of the content which have been revised are identified through the use of italic text or in bold, and [facility] has neither reviewed nor approved the modified material. All other unmodified content is copyright [facility]. Please see references footnoted in the original [facility] edition 2016 Admission Criteria Met?: Yes MATT ESQUEDA Sep 05, 2016 22:18
[2016-09-06] MEDS ORDERED: ZOLPIDEM 5 MG TABLET. PO PRN (01:15)
[2016-09-06 03:00] VITALS: BP 108/61
[2016-09-06 07:48] VITALS: BP 100/71
[2016-09-06] MEDS: IPRATRPIUM/ALBUTEROL 0.5/2.5MG 3 ML NEBU. NEB SCH ×4 (08:41→19:24)
[2016-09-06] MEDS: BUDESONIDE 0.5 MG/2 ML NEBU NEB SCH ×2 (08:41→19:24)
[2016-09-06] MEDS: PREDNISONE 10 MG TABLET PO SCH (08:49)
[2016-09-06] MEDS: OSELTAMIVIR 75 MG CAPSULE PO SCH ×2 (08:49→21:22)
[2016-09-06] MEDS: MONTELUKAST SODIUM 10 MG TABLET. PO SCH (08:49)
[2016-09-06] MEDS: FLUTICASONE 50MCG/NASAL SPRAY 16GM BOTTLE. NS SCH (08:49)
[2016-09-06 10:57] VITALS: BP 99/66
--- NOTE | 2016-09-06 13:59 | PDOC ---
PROGRESS NOTES Subjective Subjective Patient reports he still feels he is wheezing. Not able to sleep with the Ambien 5mg last night. Objective Objective Vital Signs Date Time Temp Pulse Resp B/P Pulse Ox O2 Delivery O2 Flow Rate FiO2 09/06/16 11:25 95 Room Air 09/06/16 10:57 98.6 93 20 99/66 98.6 Intake and Output 09/06/16 07:00 Intake Total 2380 ml Output Total 2950 ml Balance -570 ml Intake Oral 2380 ml Output Urine Total 2950 ml # Voids 3 Physical Exam Abdomen: Normal bowel sounds, Soft, No tenderness Heart: Regular rate Extremities: No edema General: Alert, Oriented X3, No acute distress Lungs: Other (Moderate coarse BS and expiratory wheezes throughout) Assessment Assessment Problems Medical Problems: (1) COPD exacerbation Status: Acute (2) Influenza A Status: Acute Plan Plan of Care 1. Influenza A - stable, continue Tamiflu. No pneumonia on CXR at admission. 2. AE COPD - patient is not hypoxic but chest exam shows significant wheezing. Will increase steroids to Solumedrol, continue nebs. 3. AR - stable, continue home meds. 4. hyperglycemia - A1C is 5.5 No tx presently indicated. 5. insomnia - increase Ambien to 10mg prn. Comment Review of Relevant I have reviewed the following items coral (where applicable) has been applied. Labs Laboratory Tests Test 09/04/16 22:15 09/04/16 22:23 09/05/16 06:30 09/05/16 13:05 White Blood Count 5.3x10^3/uL (4.0-11.0) 5.0x10^3/uL (4.0-11.0) Red Blood Count 5.23x10^6/uL (4.30-5.70) 5.04x10^6/uL (4.30-5.70) Hemoglobin 15.2g/dL (13.0-17.5) 14.5g/dL (13.0-17.5) Hematocrit 45.5% (39.0-53.0) 44.4% (39.0-53.0) Mean Corpuscular Volume 87fL (79-100) 88fL (79-100) Mean Corpuscular Hemoglobin 29pg (25-35) 29pg (25-35) Mean Corpuscular Hemoglobin Concent 33g/dL (31-37) 33g/dL (31-37) Red Cell Distribution Width 14.6% (11.5-14.5) 15.0% (11.5-14.5) Platelet Count 244x10^3/uL (140-400) 225x10^3/uL (140-400) Neutrophils (%) (Auto) 61% (31-73) 89% (31-73) Lymphocytes (%) (Auto) 22% (24-48) 9% (24-48) Monocytes (%) (Auto) 13% (0-9) 2% (0-9) Eosinophils (%) (Auto) 3% (0-3) 0% (0-3) Basophils (%) (Auto) 1% (0-3) 1% (0-3) Neutrophils # (Auto) 3.2x10^3uL (1.8-7.7) 4.4x10^3uL (1.8-7.7) Lymphocytes # (Auto) 1.2x10^3/uL (1.0-4.8) 0.4x10^3/uL (1.0-4.8) Monocytes # (Auto) 0.7x10^3/uL (0.0-1.1) 0.1x10^3/uL (0.0-1.1) Eosinophils # (Auto) 0.1x10^3/uL (0.0-0.7) 0.0x10^3/uL (0.0-0.7) Basophils # (Auto) 0.1x10^3/uL (0.0-0.2) 0.0x10^3/uL (0.0-0.2) Sodium Level 139mmol/L (136-145) 140mmol/L (136-145) Potassium Level 3.9mmol/L (3.5-5.1) 5.1mmol/L (3.5-5.1) Chloride Level 102mmol/L (98-107) 105mmol/L (98-107) Carbon Dioxide Level 26mmol/L (21-32) 23mmol/L (21-32) Anion Gap 11 (6-14) 12 (6-14) Blood Urea Nitrogen 10mg/dL (8-26) 12mg/dL (8-26) Creatinine 1.3mg/dL (0.7-1.3) 1.3mg/dL (0.7-1.3) Estimated GFR (Cockcroft-Gault) 66.4 66.4 Glucose Level 104mg/dL (70-99) 176mg/dL (70-99) Calcium Level 9.2mg/dL (8.5-10.1) 9.1mg/dL (8.5-10.1) Troponin I Quantitative < 0.017ng/mL (0.000-0.055) < 0.017ng/mL (0.000-0.055) < 0.017ng/mL (0.000-0.055) Influenza Type A Antigen Positive (NEGATIVE) Influenza Type B Antigen Negative (NEGATIVE) Segmented Neutrophils % 75% (35-66) Band Neutrophils % 19% (0-9) Lymphocytes % 5% (24-48) Atypical Lymphocytes % (Manual) 1% (0-0) Platelet Estimate Adequate (ADEQUATE) Hemoglobin A1c 5.5% (4.8-5.6) Medications Current Medications Albuterol/ Ipratropium (Duoneb) 3 ml 1X ONCE NEB Last administered on 22:31; Start 09/04/16 at 22:30; Stop 09/04/16 at 22:31; Status DC Ondansetron HCl (Zofran) 4 mg 1X ONCE IV Last administered on 09/04/16 22:25 ; Start 09/04/16 at 22:30; Stop 09/04/16 at 22:31; Status DC Ketorolac Tromethamine 30 mg 30 mg 1X ONCE IV Last administered on 09/04/16 22:25; Start 09/04/16 at 22:30; Stop 09/04/16 at 22:31; Status DC Sodium Chloride (Iv Sodium Chloride 0.9% 1000ml Bag) 1,000 ml @ 1,000 mls/hr 1X ONCE IV Last administered on 09/04/16 22:25; Start 09/04/16 at 22:15; Stop 09/04/16 at 23:14; Status DC Oseltamivir Phosphate (Tamiflu) 75 mg ONCE ONCE PO Last administered on 23:12; Start 09/04/16 at 23:00; Stop 09/04/16 at 23:01; Status DC Ondansetron HCl 4 mg 4 mg PRN Q8HRS PRN IV NAUSEA/VOMITING; Start 09/04/16 at 23:00; Stop 09/05/16 at 22:59; Status DC Sodium Chloride (Iv Sodium Chloride 0.9% 1000ml Bag) 1,000 ml @ 100 mls/hr Q10H IV Last administered on 09/05/16 20:13; Start 09/04/16 at 23:00; Stop at 22:59; Status DC Albuterol/ Ipratropium (Duoneb) 3 ml RTQID NEB Last administered on 09/05/16 08:10; Start 09/05/16 at 08:00; Stop 09/05/16 at 09:51; Status DC Albuterol/ Ipratropium (Duoneb) 3 ml 1X ONCE NEB Last administered on 23:23; Start 09/04/16 at 23:15; Stop 09/04/16 at 23:16; Status DC Methylprednisolone Sodium Succinate (Solu-Medrol 125mg Vial) 125 mg 1X ONCE IV Last administered on 09/04/16 23:12; Start 09/04/16 at 23:15; Stop 09/04/16 at 23:16; Status DC Prednisone (Prednisone) 50 mg DAILY PO Last administered on 09/06/16 08:49; Start 09/05/16 at 09:00 Albuterol Sulfate (Ventolin Neb Soln) 2.5 mg PRN Q4HRS PRN NEB SHORTNESS OF BREATH Last administered on 09/05/16 23:44; Start 09/05/16 at 08:30 Oseltamivir Phosphate (Tamiflu) 75 mg BID PO Last administered on 09/06/16 08: 49; Start 09/05/16 at 09:00; Stop 09/10/16 at 08:59 Fluticasone Propionate (Flonase) 2 spray DAILY NS Last administered on 08:49; Start 09/05/16 at 10:00 Montelukast Sodium (Singulair) 10 mg DAILY PO Last administered on 09/06/16 08 :49; Start 09/05/16 at 10:00 Budesonide (Pulmicort) 0.5 mg RTBID NEB Last administered on 09/06/16 08:41; Start 09/05/16 at 10:00 Albuterol/ Ipratropium (Duoneb) 3 ml RTQID NEB Last administered on 09/06/16 11:24; Start 09/05/16 at 12:00 Acetaminophen (Tylenol) 650 mg PRN Q6HRS PRN PO MILD PAIN / TEMP Last administered on 09/05/16 10:12; Start 09/05/16 at 10:00 Zolpidem Tartrate (Ambien) 5 mg PRN QHS PRN PO INSOMNIA, MAY REPEAT X 1 Last administered on 09/06/16 01:17; Start 09/06/16 at 01:15 Active Scripts Active Duoneb 0.5-3(2.5) Mg/3 Ml (Albuterol/Ipratropium) 3 Ml Ampul.neb 3 Ml NEB RTQID Symbicort 160-4.5 Mcg Inhaler (Budesonide/Formoterol Fumarate) 10.2 Gm Hfa.aer.ad 2 Puff IH BID Fluticasone Propionate Nasal [place] (Fluticasone Propionate) 1 [place] 2 [place] NS DAILY Singulair Tablet (Montelukast Sodium) 10 Mg Tablet 10 Mg PO DAILY Reported Combivent Respimat Inhal (Ipratropium/Albuterol Sulfate) 4 Gm Aer.w.adap 1 Puff IH QID Vitals/I & O Vital Sign - Last 24 Hours 09/05/16 09/05/16 09/05/16 09/05/16 14:05 16:33 19:00 19:05 Temp 98.1 97.9 98.1 97.9 Pulse 105 124 Resp 20 22 B/P 113/69 119/55 Pulse Ox 92 96 94 99 O2 Delivery Room Air Room Air Room Air Room Air 09/05/16 09/05/16 09/05/16 09/05/16 19:06 20:00 23:00 23:44 Temp 97.9 97.9 Pulse 101 Resp 22 B/P 121/65 Pulse Ox 96 95 97 O2 Delivery Room Air Room Air Room Air Room Air 09/06/16 09/06/16 09/06/16 09/06/16 03:00 07:48 08:00 08:41 Temp 97.9 98.3 97.9 98.3 Pulse 101 90 Resp 22 16 B/P 108/61 100/71 Pulse Ox 95 95 O2 Delivery Room Air Room Air Room Air Room Air 09/06/16 09/06/16 10:57 11:25 Temp 98.6 98.6 Pulse 93 Resp 20 B/P 99/66 Pulse Ox 94 95 O2 Delivery Room Air Room Air Intake and Output 09/05/16 09/05/16 09/06/16 15:00 23:00 07:00 Intake Total 960 ml 920 ml 500 ml Output Total 750 ml 2200 ml Balance 960 ml 170 ml -1700 ml JAMES DO MD Sep 06, 2016 13:59
[2016-09-06 15:00] VITALS: BP 112/79
[2016-09-06] MEDS: methylPREDNISolone SOD SUCC PF 125 MG/2 ML VIAL. IV SCH ×2 (15:14→22:13)
[2016-09-06 19:00] VITALS: BP 126/82
[2016-09-06] MEDS: ZOLPIDEM 5 MG TABLET. PO PRN ×2 (21:22→22:11)
[2016-09-06 23:00] VITALS: BP 99/57
[2016-09-07 03:00] VITALS: BP 138/77
[2016-09-07] MEDS: methylPREDNISolone SOD SUCC PF 125 MG/2 ML VIAL. IV SCH ×3 (05:53→21:51)
[2016-09-07 07:00] VITALS: BP 114/68
[2016-09-07] MEDS: BUDESONIDE 0.5 MG/2 ML NEBU NEB SCH ×2 (07:30→18:04)
[2016-09-07] MEDS: IPRATRPIUM/ALBUTEROL 0.5/2.5MG 3 ML NEBU. NEB SCH ×4 (07:30→18:04)
[2016-09-07] MEDS: OSELTAMIVIR 75 MG CAPSULE PO SCH ×2 (09:07→20:58)
[2016-09-07] MEDS: MONTELUKAST SODIUM 10 MG TABLET. PO SCH (09:07)
[2016-09-07] MEDS: FLUTICASONE 50MCG/NASAL SPRAY 16GM BOTTLE. NS SCH (09:09)
[2016-09-07 11:00] VITALS: BP 112/67
--- NOTE | 2016-09-07 12:30 | PDOC ---
PROGRESS NOTES Subjective Subjective Patient reports breathing is a little better but he still feels he is wheezing. Objective Objective Vital Signs Date Time Temp Pulse Resp B/P Pulse Ox O2 Delivery O2 Flow Rate FiO2 09/07/16 11:44 Room Air 09/07/16 07:32 96 09/07/16 07:00 97.7 82 18 114/68 97.7 Intake and Output 09/07/16 07:00 Intake Total 600 ml Output Total 575 ml Balance 25 ml Intake Oral 600 ml Output Urine Total 575 ml Physical Exam Abdomen: Normal bowel sounds, Soft, No tenderness Heart: Regular rate Extremities: No edema General: Alert, Oriented X3, No acute distress Lungs: Other (moderate expiratory wheezes and coarse BS in bilateral bases, fair air flow) Assessment Assessment Problems Medical Problems: (1) COPD exacerbation Status: Acute (2) Influenza A Status: Acute Plan Plan of Care 1. Influenza A with AE COPD - stable, no hypoxia on room air. Some improvement in exam from yesterday. Continue Solumedrol and nebs. 2. insomnia - continue Ambien prn. Comment Review of Relevant I have reviewed the following items coral (where applicable) has been applied. Labs Laboratory Tests Test 09/05/16 13:05 Troponin I Quantitative < 0.017ng/mL (0.000-0.055) Medications Current Medications Albuterol/ Ipratropium (Duoneb) 3 ml 1X ONCE NEB Last administered on 22:31; Start 09/04/16 at 22:30; Stop 09/04/16 at 22:31; Status DC Ondansetron HCl (Zofran) 4 mg 1X ONCE IV Last administered on 09/04/16 22:25 ; Start 09/04/16 at 22:30; Stop 09/04/16 at 22:31; Status DC Ketorolac Tromethamine 30 mg 30 mg 1X ONCE IV Last administered on 09/04/16 22:25; Start 09/04/16 at 22:30; Stop 09/04/16 at 22:31; Status DC Sodium Chloride (Iv Sodium Chloride 0.9% 1000ml Bag) 1,000 ml @ 1,000 mls/hr 1X ONCE IV Last administered on 09/04/16 22:25; Start 09/04/16 at 22:15; Stop 09/04/16 at 23:14; Status DC Oseltamivir Phosphate (Tamiflu) 75 mg ONCE ONCE PO Last administered on 23:12; Start 09/04/16 at 23:00; Stop 09/04/16 at 23:01; Status DC Ondansetron HCl 4 mg 4 mg PRN Q8HRS PRN IV NAUSEA/VOMITING; Start 09/04/16 at 23:00; Stop 09/05/16 at 22:59; Status DC Sodium Chloride (Iv Sodium Chloride 0.9% 1000ml Bag) 1,000 ml @ 100 mls/hr Q10H IV Last administered on 09/05/16 20:13; Start 09/04/16 at 23:00; Stop at 22:59; Status DC Albuterol/ Ipratropium (Duoneb) 3 ml RTQID NEB Last administered on 09/05/16 08:10; Start 09/05/16 at 08:00; Stop 09/05/16 at 09:51; Status DC Albuterol/ Ipratropium (Duoneb) 3 ml 1X ONCE NEB Last administered on 23:23; Start 09/04/16 at 23:15; Stop 09/04/16 at 23:16; Status DC Methylprednisolone Sodium Succinate (Solu-Medrol 125mg Vial) 125 mg 1X ONCE IV Last administered on 09/04/16 23:12; Start 09/04/16 at 23:15; Stop 09/04/16 at 23:16; Status DC Prednisone (Prednisone) 50 mg DAILY PO Last administered on 09/06/16 08:49; Start 09/05/16 at 09:00; Stop 09/06/16 at 13:56; Status DC Albuterol Sulfate (Ventolin Neb Soln) 2.5 mg PRN Q4HRS PRN NEB SHORTNESS OF BREATH Last administered on 09/05/16 23:44; Start 09/05/16 at 08:30 Oseltamivir Phosphate (Tamiflu) 75 mg BID PO Last administered on 09/07/16 09: 07; Start 09/05/16 at 09:00; Stop 09/10/16 at 08:59 Fluticasone Propionate (Flonase) 2 spray DAILY NS Last administered on 09:09; Start 09/05/16 at 10:00 Montelukast Sodium (Singulair) 10 mg DAILY PO Last administered on 09/07/16 09 :07; Start 09/05/16 at 10:00 Budesonide (Pulmicort) 0.5 mg RTBID NEB Last administered on 09/07/16 07:30; Start 09/05/16 at 10:00 Albuterol/ Ipratropium (Duoneb) 3 ml RTQID NEB Last administered on 09/07/16 11:44; Start 09/05/16 at 12:00 Acetaminophen (Tylenol) 650 mg PRN Q6HRS PRN PO MILD PAIN / TEMP Last administered on 09/05/16 10:12; Start 09/05/16 at 10:00 Zolpidem Tartrate (Ambien) 5 mg PRN QHS PRN PO INSOMNIA, MAY REPEAT X 1 Last administered on 09/06/16 01:17; Start 09/06/16 at 01:15; Stop 09/06/16 at 13:56 ; Status DC Zolpidem Tartrate (Ambien) 5 mg PRN QHS PRN PO INSOMNIA Last administered on 22:11; Start 09/06/16 at 14:00 Methylprednisolone Sodium Succinate (Solu-Medrol 125mg Vial) 60 mg Q8HRS IV Last administered on 09/07/16 05:53; Start 09/06/16 at 14:00 Active Scripts Active Duoneb 0.5-3(2.5) Mg/3 Ml (Albuterol/Ipratropium) 3 Ml Ampul.neb 3 Ml NEB RTQID Symbicort 160-4.5 Mcg Inhaler (Budesonide/Formoterol Fumarate) 10.2 Gm Hfa.aer.ad 2 Puff IH BID Fluticasone Propionate Nasal [place] (Fluticasone Propionate) 1 [place] 2 [place] NS DAILY Singulair Tablet (Montelukast Sodium) 10 Mg Tablet 10 Mg PO DAILY Reported Combivent Respimat Inhal (Ipratropium/Albuterol Sulfate) 4 Gm Aer.w.adap 1 Puff IH QID Vitals/I & O Vital Sign - Last 24 Hours 09/06/16 09/06/16 09/06/16 09/06/16 15:00 16:46 19:00 19:26 Temp 98.2 97.9 98.2 97.9 Pulse 94 102 Resp 20 24 B/P 112/79 126/82 Pulse Ox 94 91 95 O2 Delivery Room Air Room Air Room Air Room Air 09/06/16 09/06/16 09/06/16 09/07/16 19:29 20:00 23:00 03:00 Temp 97.9 97.9 97.9 97.9 Pulse 108 89 Resp 24 24 B/P 99/57 138/77 Pulse Ox 95 92 96 O2 Delivery Room Air Room Air Room Air Room Air 09/07/16 09/07/16 09/07/16 09/07/16 07:00 07:31 07:32 08:00 Temp 97.7 97.7 Pulse 82 Resp 18 B/P 114/68 Pulse Ox 100 96 96 O2 Delivery Room Air Room Air Room Air Room Air 09/07/16 11:44 O2 Delivery Room Air Intake and Output 09/06/16 09/06/16 09/07/16 15:00 23:00 07:00 Intake Total 600 ml Output Total 575 ml Balance -575 ml 600 ml JAMES DO MD Sep 07, 2016 12:30
[2016-09-07 15:00] VITALS: BP 119/66
[2016-09-07 19:00] VITALS: BP 129/81
[2016-09-07] MEDS: ZOLPIDEM 5 MG TABLET. PO PRN ×2 (20:58→21:50)
[2016-09-07 23:00] VITALS: BP 130/81
[2016-09-08 03:00] VITALS: BP 115/74
[2016-09-08] MEDS: methylPREDNISolone SOD SUCC PF 125 MG/2 ML VIAL. IV SCH ×3 (06:07→21:10)
[2016-09-08 07:20] VITALS: BP 117/75
[2016-09-08] MEDS: IPRATRPIUM/ALBUTEROL 0.5/2.5MG 3 ML NEBU. NEB SCH ×4 (07:46→19:20)
[2016-09-08] MEDS: BUDESONIDE 0.5 MG/2 ML NEBU NEB SCH ×2 (07:46→19:20)
--- NOTE | 2016-09-08 08:44 | PDOC ---
SUBJECTIVE Subjective Feels like he is breathing a little bit better today. Has been able to walk around in the room. Still some cough. Eating and drinking okay. OBJECTIVE Vital Signs Vital Signs Date Time Temp Pulse Resp B/P Pulse Ox O2 Delivery O2 Flow Rate FiO2 09/08/16 07:46 98 Room Air 09/08/16 07:20 96.3 76 18 117/75 94 Room Air 96.3 09/08/16 03:00 97.7 92 22 115/74 94 Room Air 97.7 09/07/16 23:00 97.7 110 22 130/81 92 Room Air 97.7 09/07/16 20:06 Room Air 09/07/16 19:00 97.5 108 22 129/81 94 Room Air 97.5 09/07/16 18:04 98 Room Air 09/07/16 15:28 Room Air 09/07/16 15:00 97.7 105 18 119/66 98 Room Air 97.7 09/07/16 11:44 Room Air 09/07/16 11:00 97.7 98 18 112/67 94 Room Air 97.7 I & O Intake and Output 09/08/16 07:00 Intake Total 2260 ml Balance 2260 ml Intake Oral 2260 ml # Voids 5 PHYSICAL EXAM Physical Exam General: No acute distress. Laying in bed without supplemental oxygen. Mental status: Alert and oriented. Chest: Decreased air movement throughout. No wheezes or rales. CV: Normal rate. Regular rhythm. No murmur. Abdomen: Normal bowel sounds. Soft. Not distended. No tenderness. No guarding. No rebound. Extremities: No lower extremity edema ASSESSMENT/PLAN Assessment/Plan 1. Influenza A with AE COPD - stable, no hypoxia on room air. Less wheezing today. We'll continue IV steroids for another 24 hours since he noticed a fairly significant improvement with the initiation of those. Increase ambulation in the room. 2. insomnia - continue Ambien prn. 3. Disposition: Probably home tomorrow after changing to oral steroids tomorrow if he continues to do well. Problems: ROGER JENKINS MD Sep 08, 2016 08:44
[2016-09-08] MEDS: MONTELUKAST SODIUM 10 MG TABLET. PO SCH (10:17)
[2016-09-08] MEDS: OSELTAMIVIR 75 MG CAPSULE PO SCH ×2 (10:17→21:10)
[2016-09-08] MEDS: FLUTICASONE 50MCG/NASAL SPRAY 16GM BOTTLE. NS SCH (10:17)
[2016-09-08 10:30] VITALS: BP 107/65
[2016-09-08] MEDS: ACETAMINOPHEN 325 MG TABLET. PO PRN (12:32)
[2016-09-08 14:45] VITALS: BP 136/89
[2016-09-08 19:00] VITALS: BP 111/67
[2016-09-08] MEDS: ZOLPIDEM 5 MG TABLET. PO PRN ×2 (21:19→22:12)
[2016-09-08 22:31] VITALS: BP 118/77
[2016-09-09] MEDS: ACETAMINOPHEN 325 MG TABLET. PO PRN (00:55)
[2016-09-09] MEDS: methylPREDNISolone SOD SUCC PF 125 MG/2 ML VIAL. IV SCH (06:24)
[2016-09-09 07:00] VITALS: BP 111/68
[2016-09-09] MEDS: IPRATRPIUM/ALBUTEROL 0.5/2.5MG 3 ML NEBU. NEB SCH ×2 (07:12→11:23)
[2016-09-09] MEDS: BUDESONIDE 0.5 MG/2 ML NEBU NEB SCH (07:13)
[2016-09-09] MEDS: OSELTAMIVIR 75 MG CAPSULE PO SCH (09:32)
[2016-09-09] MEDS: MONTELUKAST SODIUM 10 MG TABLET. PO SCH (09:32)
[2016-09-09] MEDS: FLUTICASONE 50MCG/NASAL SPRAY 16GM BOTTLE. NS SCH (09:33)
--- NOTE | 2016-09-09 10:02 | DISCH ---
DISCHARGE INSTRUCTIONS Condition on Discharge Condition on Discharge: Stable Activity After Discharge Activity Instructions for Disc: Activity as tolerated Diet after Discharge Diet after Discharge: Regular Contacting the DR. after DC Call your doctor for: If your condition worsens Follow-Up Follow up with: Dr Jenkins in 1-2 weeks ROGER JENKINS MD Sep 09, 2016 10:02
[2016-09-09] MEDS ORDERED: PRED20TA PO (10:11)
[2016-09-09] MEDS ORDERED: OSEL75CA PO (10:11)
--- NOTE | 2016-09-09 10:17 | PDOC ---
Provider Note Provider Note See discharge summary dictation #[id number] ROGER JENKINS MD Sep 09, 2016 10:17
[2016-09-09 10:51] VITALS: BP 113/63
--- NOTE | 2016-09-09 12:34 | DS ---
DATE OF DISCHARGE: 09/09/2016 ATTENDING PHYSICIAN: Dr. Roger Jenkins. CHIEF COMPLAINT: Cough, not feeling well. HISTORY OF PRESENT ILLNESS: The patient is a 66-year-old male with a history of COPD who presented after several days of cough that was not improving. He also had body ache and headaches, so he presented to the Emergency Room. He had fevers, chills, sore throat, runny nose with ____ drainage and a cough that was productive with the same type of sputum. He did also have some abdominal pain with nausea, vomiting and diarrhea. He was exposed to friend that has been hospitalized for influenza recently. HOSPITAL COURSE: The patient was noted to be influenza A positive in the Emergency Room due to his prior history of respiratory status. He was feeling fairly ____, so it was decided to begin treatment for influenza A as well as prednisone with nebulizer treatments and supportive care. The patient did get some improvement initially, but then worsened with increased wheezing and tightness, so he was placed on IV steroids. He had improvement with the IV steroids in his respiratory status and then he was feeling capable of managing an outpatient setting with continued to oral steroids, so he was discharged on oral steroids. At the time of discharge, he was afebrile. PHYSICAL EXAMINATION: VITAL SIGNS: Stable. He was maintaining O2 sats to about 90% on room air. GENERAL: He is alert, in no distress. His cough was improved and that was minimally productive. His nausea and vomiting and diarrhea resolved. CHEST: Clear with decreased air movement throughout. HEART: Had a regular rate and rhythm without murmurs. ABDOMEN: Soft and nontender. EXTREMITIES: Without edema. Chest x-ray showed mild bibasilar interstitial opacities without any confluent infiltrates, probably consistent with his influenza and COPD with exacerbation. The influenza A test was positive. DISCHARGE DIAGNOSES: 1. Influenza A with acute exacerbation of chronic obstructive pulmonary disease, improved. 2. Insomnia. 3. Chronic allergic rhinitis. DISCHARGE DIET: Regular diet. DISCHARGE ACTIVITIES: As tolerated. FOLLOWUP: The patient is to follow up with me in 1-2 weeks. MEDICATIONS AT THE TIME OF DISCHARGE: Include, 1. Tamiflu 75 mg ____ for 1 more dose to complete his 5 day total treatment. 2. Prednisone 60 mg p.o. daily for 2 days and then 40 mg for 2 days, then 20 mg for 2 days, then 10 mg for 2 days. 3. Symbicort 2 puffs b.i.d. 4. Flonase 2 sprays each nostril daily. 5. DuoNeb q.i.d. with Combivent q.i.d. p.r.n. 6. Singulair 10 mg p.o. daily. ROGER JENKINS MD DR: SUE/sofi JOB#: [id number] / [id number]
== END 2016-09-09 12:30 | disposition home or self-care (01) | DRG 194 ==
LOC: ER 21:57 → 5 NORTH 22:25
PROVIDERS: ADMIT Family Medicine; ATTEND Family Medicine
DX: J10.1 Influenza due to other identified influenza virus with other respiratory manifestations (principal); J44.1 Chronic obstructive pulmonary disease with (acute) exacerbation; G47.00 Insomnia, unspecified; I50.9 Heart failure, unspecified; J30.9 Allergic rhinitis, unspecified; J30.2 Other seasonal allergic rhinitis; M19.90 Unspecified osteoarthritis, unspecified site; F14.90 Cocaine use, unspecified, uncomplicated; R73.9 Hyperglycemia, unspecified; Z88.5 Allergy status to narcotic agent; Z93.0 Tracheostomy status; Z82.5 Family history of asthma and other chronic lower respiratory diseases; Z83.3 Family history of diabetes mellitus; Z85.46 Personal history of malignant neoplasm of prostate; Z87.891 Personal history of nicotine dependence
CPT/HCPCS: 36415; 71010; 80048; 83036; 84484; 85007; 85027; 87804; 93005; 94250; 94640; 94760; 96361; 96374; 96375; J1885; J2405; J2930; J7030; J7512; J7620; 99285-25

== ENCOUNTER 2016-10-18 14:09 | Emergency (ER) | payer MEDICARE ==
[~2016-10-18 14:09] MED LIST changes: +OSEL75CA PO
[2016-10-18 14:20] VITALS: BP 118/71
[2016-10-18] MEDS ORDERED: AZITHROMYCIN 250 MG TABLET. PO ONE (14:45)
[2016-10-18] MEDS ORDERED: CEFTRIAXONE IM 250 MG VIAL. IM ONE (14:45)
--- NOTE | 2016-10-18 15:16 | PHYS DOC ---
Past Medical History Past Medical History: Cancer, CHF, COPD, Other Additional Past Medical Histor: seasonal allergies, PROSTATE CANCER, RESP FAILURE Past Surgical History: Other Additional Past Surgical Histo: craniotomy,hemorrhoidectomy,L knee, scar tissur removed throat/neck,back Additional Information: Nonsmoker Alcohol Use: Occasionally Drug Use: None Adult General Chief Complaint Chief Complaint: SEXUALLY TRANSMITTED DISEASE [facility] HPI Patient is a 66 year old male who presents with penile discharge for 3 days. He initially had dysuria but this has not resolved. He denies urinary frequency or hematuria. He denies fever, abdominal pain, flank pain, testicular pain or swelling. The patient is sexually active. He is concerned for STDs. His PCP is Dr. Roger Jenkins. Review of Systems Review of Systems Constitutional: Denies fever or chills. [] Eyes: Denies change in visual acuity, redness, or eye pain. [] HENT: Denies ear pain, nasal congestion or sore throat. [] Respiratory: Denies cough or shortness of breath. [] Cardiovascular: Denies chest pain, palpitations or edema. [] GI: Denies abdominal pain, nausea, vomiting, bloody stools or diarrhea. [] : Denies hematuria or urinary frequency. Denies testicular pain or swelling. Reports penile discharge and dysuria (resolved). Musculoskeletal: Denies back pain or joint pain. [] Integument: Denies rash or skin lesions. [] Neurologic: Denies headache, focal weakness or sensory changes. [] Endocrine: Denies polyuria or polydipsia. [] Psych: Denies anxiety or depression. [] All systems reviewed and negative unless otherwise stated in the HPI. Current Medications Current Medications Current Medications Medications (Trade) Dose Ordered Sig/Rohit Start Time Stop Time Status Last Admin Dose Admin Azithromycin (Zithromax) 1,000 mg 1X ONCE 10/18/16 14:45 10/18/16 14:46 DC 10/18/16 15:01 1,000 MG Ceftriaxone Sodium (Rocephin Im) 250 mg 1X ONCE 10/18/16 14:45 10/18/16 14:46 DC 10/18/16 15:01 250 MG Allergies Allergies Allergies Coded Allergies Type Severity Reaction Last Updated Verified codeine Allergy Intermediate "i dont know they just tell me that" 04/03/15 Yes Physical Exam Physical Exam Constitutional: Well developed, well nourished, no acute distress, non-toxic appearance. [] HENT: Normocephalic, atraumatic, oropharynx moist. [] Eyes: PERRLA, EOMI, conjunctiva normal, no discharge. [] Neck: Normal range of motion, no tenderness, supple, no stridor. [] Cardiovascular: Heart rate regular rhythm, no murmur. [] Lungs & Thorax: Bilateral breath sounds clear to auscultation without wheezes, rales, or rhonchi. [] Abdomen: Bowel sounds normal, soft, no tenderness, no masses, no pulsatile masses. [] Male : ED RN welding manager present for exam, Leyla Ayoub RN. The patient is uncircumcised. There is no discharge seen. There are no external lesions. There is no testicular tenderness or swelling. Skin: Warm, dry, no erythema, no rash. [] Back: No midline tenderness, no CVA tenderness. [] Neurologic: Alert and oriented X 3, normal motor function, normal sensory function, no focal deficits noted. [] Psychologic: Affect normal, judgement normal, mood normal. [] Current Patient Data Vital Signs Vital Signs Date Time Temp Pulse Resp B/P Pulse Ox O2 Delivery O2 Flow Rate FiO2 10/18/16 14:20 97.5 87 18 97 Room Air 97.5 EKG EKG [] Radiology/Procedures Radiology/Procedures [] Course & Med Decision Making Course & Med Decision Making Pertinent Labs and Imaging studies reviewed. (See chart for details) The patient presents with penile discharge. He is treated for gonorrhea and chlamydia with Rocephin and azithromycin in the emergency department. He is instructed to abstain from intercourse for one week. He will be contacted if his results are positive. Return precautions were discussed. He verbalizes understanding and agrees with plan. Dragon Disclaimer Dragon Disclaimer This electronic medical record was generated, in whole or in part, using a voice recognition dictation system. Departure Departure Impression: Primary Impression: Penile discharge Disposition: 01 HOME, SELF-CARE Condition: STABLE Referrals: ROGER JENKINS MD (PCP) Patient Instructions: Sexually Transmitted Disease, [id number] Additional Instructions: You were treated for gonorrhea and chlamydia in the emergency department today. We will not have the results of your test back for 2-3 days. You will receive a phone call if your test is positive. Please do not have sex for one week to be sure that the treatment is complete. Please follow-up with your primary care doctor if your symptoms continue. Return to the emergency department if you have any new or concerning symptoms. RAHUL RICE Oct 18, 2016 15:16
== END 2016-10-18 15:18 | disposition home or self-care (01) ==
LOC: ER 14:09
DX: R36.9 Urethral discharge, unspecified (principal); I50.9 Heart failure, unspecified; J44.9 Chronic obstructive pulmonary disease, unspecified; Z88.5 Allergy status to narcotic agent
CPT/HCPCS: 87491; 87591; 96372; 99284; J0696; Q0144; 36415

== ENCOUNTER 2016-11-14 17:46 | Emergency (ER) | payer MEDICARE ==
[~2016-11-14] VITALS: Ht 182.9 cm; Wt 97.5 kg
[2016-11-14 17:59] VITALS: BP 120/82
[2016-11-14] MEDS ORDERED: cefTRIAXone IM 250 MG VIAL IM ONE (18:00)
[2016-11-14] MEDS ORDERED: AZITHROMYCIN 250 MG TABLET. PO ONE (18:00)
--- NOTE | 2016-11-14 18:01 | PHYS DOC ---
Past Medical History Past Medical History: Cancer, CHF, COPD, Other Additional Past Medical Histor: seasonal allergies, PROSTATE CANCER, RESP FAILURE Past Surgical History: Other Additional Past Surgical Histo: craniotomy,hemorrhoidectomy,L knee, scar tissur removed throat/neck,back Alcohol Use: Occasionally Drug Use: None Adult General Chief Complaint Chief Complaint: PENIS PROBLEM HPI HPI Patient is a 66 year old male presents emergency Department today with complaint of penile discharge began one day ago. Patient states he's been sexually active with a new partner over the past week. He states he is concerned about an STD. He denies testicular pain, perineal pain he denies fevers, chills, myalgias or arthralgias. Patient denies taking any antibiotics within the past 90 days. He has no other complaints or concerns at this time. Review of Systems Review of Systems Constitutional: Denies fever or chills [] Eyes: Denies change in visual acuity, redness, or eye pain [] HENT: Denies nasal congestion or sore throat [] Respiratory: Denies cough or shortness of breath [] Cardiovascular: No additional information not addressed in HPI [] GI: Denies abdominal pain, nausea, vomiting, bloody stools or diarrhea [] : Denies dysuria or hematuria [] Musculoskeletal: Denies back pain or joint pain [] Integument: Denies rash or skin lesions [] Neurologic: Denies headache, focal weakness or sensory changes [] Endocrine: Denies polyuria or polydipsia [] Current Medications Current Medications Current Medications Medications (Trade) Dose Ordered Sig/Rohit Start Time Stop Time Status Last Admin Dose Admin Azithromycin (Zithromax) 1,000 mg 1X ONCE 11/14/16 18:00 11/14/16 18:02 DC Ceftriaxone Sodium (Rocephin Im) 250 mg 1X ONCE 11/14/16 18:00 11/14/16 18:02 DC Allergies Allergies Allergies Coded Allergies Type Severity Reaction Last Updated Verified codeine Allergy Intermediate "i dont know they just tell me that" 04/03/15 Yes Physical Exam Physical Exam Constitutional: Well developed, well nourished, no acute distress, non-toxic appearance. [] HENT: Normocephalic, atraumatic, bilateral external ears normal, oropharynx moist, no oral exudates, nose normal. [] Eyes: PERRLA, EOMI, conjunctiva normal, no discharge. [] Neck: Normal range of motion, no tenderness, supple, no stridor. [] Cardiovascular:Heart rate regular rhythm, no murmur [] Lungs & Thorax: Bilateral breath sounds clear to auscultation [] Abdomen: Bowel sounds normal, soft, no tenderness, no masses, no pulsatile masses. Testicles bilaterally. No overlying skin lesions to the penis, scrotum and suprapubic area. No inguinal lymphadenopathy appreciated. There is a yellowish white discharge at the meatus. Skin: Warm, dry, no erythema, no rash. [] Back: No tenderness, no CVA tenderness. [] Extremities: No tenderness, no cyanosis, no clubbing, ROM intact, no edema. [] Neurologic: Alert and oriented X 3, normal motor function, normal sensory function, no focal deficits noted. [] Psychologic: Affect normal, judgement normal, mood normal. [] Current Patient Data Vital Signs Vital Signs Date Time Temp Pulse Resp B/P (MAP) Pulse Ox O2 Delivery O2 Flow Rate FiO2 11/14/16 17:59 97.6 71 16 97 Room Air 97.6 Lab Values Laboratory Tests Test 11/14/16 18:02 Urine Collection Type Unknown Urine Color Yellow Urine Clarity Clear Urine pH 5.5 Urine Specific [place] 1.015 Urine Protein Negative mg/dL (NEG-TRACE) Urine Glucose (UA) Negative mg/dL (NEG) Urine Ketones (Stick) Negative mg/dL (NEG) Urine Blood Negative (NEG) Urine Nitrite Negative (NEG) Urine Bilirubin Negative (NEG) Urine Urobilinogen Dipstick 1.0 mg/dL (0.2 mg/dL) Urine Leukocyte Esterase Large (NEG) Urine RBC 0 /HPF (0-2) Urine WBC 5-10 /HPF (0-4) Urine Squamous Epithelial Cells Mod /LPF Urine Bacteria 0 /HPF (0-FEW) Urine Mucus Marked /LPF Urine Trichomonas Present EKG EKG [] Radiology/Procedures Radiology/Procedures [] Course & Med Decision Making Course & Med Decision Making Pertinent Labs and Imaging studies reviewed. (See chart for details) [] Dragon Disclaimer Dragon Disclaimer This electronic medical record was generated, in whole or in part, using a voice recognition dictation system. Departure Departure Impression: Primary Impression: Trichomonas infection Disposition: 01 HOME, SELF-CARE Condition: GOOD Referrals: ROGER JENKINS MD (PCP) Patient Instructions: Trichomonas, Test Additional Instructions: 1. You did test positive for Trichomonas. 2. Pending test for chlamydia and gonorrhea results will be available in 3 days. You will be contacted if the test results are positive. You will not be contacted if the test results are negative. You did receive 2 antibiotics here in the emergency department: Rocephin to cover for gonorrhea and azithromycin to cover chlamydia. 3. Review the discharge instructions provided for self-care and reasons to return to the emergency department. 4. No sex for at least 2 weeks. 5. Contact your primary care doctor Thursday morning for follow-up if there are any concerns. Scripts Metronidazole (FLAGYL) 500 Mg Tablet 1 TAB PO BID, #14 TAB Prov: ARTURO BILL 11/14/16 ARTURO BILL November 14, 2016 18:01
[2016-11-14 18:37] LABS: BILIRUBIN,URINE NEGATIVE (NEG); GLUCOSE,URINE NEGATIVE (NEG); NITRITE,URINE NEGATIVE (NEG); PH,URINE 5.5; PROTEIN,URINE NEGATIVE (NEG-TRACE)
[2016-11-14 18:46] LABS: BACTERIA,URINE 0 /HPF (0-FEW); RBC,URINE 0 /HPF (0-2); SQUAMOUS EPITHELIAL CELL,UR MOD /LPF; TRICHOMONAS,URINE PRESENT
[2016-11-14] MEDS ORDERED: METR500T PO (19:01)
== END 2016-11-14 19:27 | disposition home or self-care (01) ==
LOC: ER 17:46
DX: A59.9 Trichomoniasis, unspecified (principal); J44.9 Chronic obstructive pulmonary disease, unspecified; I50.9 Heart failure, unspecified; Z88.5 Allergy status to narcotic agent
CPT/HCPCS: 81001; 87086; 96372; 99284; J0696; Q0144; 87491; 87591

== ENCOUNTER 2018-12-14 21:16 | Emergency (ER) | payer MEDICARE, OTHER ==
[~2018-12-14] VITALS: Ht 182.9 cm; Wt 104.3 kg
[~2018-12-14 21:16] MED LIST changes: -GUAI600T38 PO; +GUAI600T47 PO; -IPRA3AMP NEB; +IPRA3AMP29 NEB; -LEVO500T38 PO; +LEVO500T59 PO; +METR500T PO; -OXYC-323 PO; +OXYC1TAB15 PO
[2018-12-14 21:25] VITALS: BP 139/68
[2018-12-14 22:01] LABS: BILIRUBIN,URINE NEGATIVE (NEG); CLARITY,URINE CLEAR; COLOR,URINE YELLOW; NITRITE,URINE NEGATIVE (NEG); PROTEIN,URINE NEGATIVE (NEG-TRACE)
[2018-12-14 22:08] LABS: SQUAMOUS EPITHELIAL CELL,UR MOD /LPF
[2018-12-14 22:09] LABS: BACTERIA,URINE 0 /HPF (0-FEW); TRICHOMONAS,URINE PRESENT; WBC,URINE >40 /HPF (0-4)
[2018-12-14] MEDS ORDERED: CEPH-264 PO (22:49)
--- NOTE | 2018-12-14 22:50 | PHYS DOC ---
Past Medical History Past Medical History: Cancer, CHF, COPD, Other Additional Past Medical Histor: seasonal allergies, PROSTATE CANCER, RESP FAILURE Past Surgical History: Other Additional Past Surgical Histo: craniotomy,hemorrhoidectomy,L knee, scar tissur removed throat/neck,back Alcohol Use: Occasionally Drug Use: Cocaine, Other Social History Narrative: LAST USED "LAST WEEK" Adult General Chief Complaint Chief Complaint: SEXUALLY TRANSMITTED DISEASE HPI HPI Patient is a 68 year old male who presents with penile discharge since this morning. 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 He has been having a white discharge from his penis. 0/10 pain. No interventions prior to arrival. Review of Systems Review of Systems Constitutional: Denies fever or chills [] Eyes: Denies change in visual acuity, redness, or eye pain [] HENT: Denies nasal congestion or sore throat [] Respiratory: Denies cough or shortness of breath [] Cardiovascular: No additional information not addressed in HPI [] GI: Denies abdominal pain, nausea, vomiting, bloody stools or diarrhea [] : Reports dysuria and penile discharge. Musculoskeletal: Denies back pain or joint pain [] Integument: Denies rash or skin lesions [] Neurologic: Denies headache, focal weakness or sensory changes [] Endocrine: Denies polyuria or polydipsia [] Complete systems were reviewed and found to be within normal limits, except as documented in this note. Allergies Allergies Allergies Coded Allergies Type Severity Reaction Last Updated Verified codeine Allergy Intermediate "i dont know they just tell me that" 04/03/15 Yes Physical Exam Physical Exam Constitutional: Well developed, well nourished, no acute distress, non-toxic appearance. [] HENT: Normocephalic, atraumatic, bilateral external ears normal, oropharynx moist, no oral exudates, nose normal. [] Eyes: PERRLA, EOMI, conjunctiva normal, no discharge. [] Neck: Normal range of motion, no tenderness, supple, no stridor. [] Cardiovascular:Heart rate regular rhythm, no murmur [] Lungs & Thorax: Bilateral breath sounds clear to auscultation [] Abdomen: Bowel sounds normal, soft, no tenderness, no masses, no pulsatile masses. [] Skin: Warm, dry, no erythema, no rash. [] Back: No tenderness, no CVA tenderness. [] Extremities: No tenderness, no cyanosis, no clubbing, ROM intact, no edema. [] Neurologic: Alert and oriented X 3, normal motor function, normal sensory function, no focal deficits noted. [] Psychologic: Affect normal, judgement normal, mood normal. [] Current Patient Data Vital Signs Vital Signs Date Time Temp Pulse Resp B/P (MAP) Pulse Ox O2 Delivery O2 Flow Rate FiO2 12/14/18 21:25 98.2 91 16 139/68 (91) 96 Room Air 98.2 Lab Values Laboratory Tests Test 12/14/18 21:30 Urine Collection Type Unknown Urine Color Yellow Urine Clarity Clear Urine pH 5.0 Urine Specific [place] 1.010 Urine Protein Negative mg/dL (NEG-TRACE) Urine Glucose (UA) Negative mg/dL (NEG) Urine Ketones (Stick) Negative mg/dL (NEG) Urine Blood Small (NEG) Urine Nitrite Negative (NEG) Urine Bilirubin Negative (NEG) Urine Urobilinogen Dipstick 1.0 mg/dL (0.2 mg/dL) Urine Leukocyte Esterase Large (NEG) Urine RBC 3-5 /HPF (0-2) Urine WBC >40 /HPF (0-4) Urine Squamous Epithelial Cells Mod /LPF Urine Bacteria 0 /HPF (0-FEW) Urine Mucus Slight /LPF Urine Trichomonas Present EKG EKG [] Radiology/Procedures Radiology/Procedures [] Course & Med Decision Making Course & Med Decision Making Pertinent Labs and Imaging studies reviewed. (See chart for details) Will treat for STD's based off of symptoms. Patient is agreeable. Patient also has UTI. Will send home with Keflex. Dragon Disclaimer Dragon Disclaimer This electronic medical record was generated, in whole or in part, using a voice recognition dictation system. Departure Departure Impression: Primary Impression: Penile discharge Additional Impression: Urinary tract infection Disposition: HOME, SELF-CARE Condition: STABLE Referrals: ROGER JENKINS MD (PCP) Patient Instructions: Sexually Transmitted Disease, Urinary Tract Infection Additional Instructions: Please follow up with primary care doctor as needed. Return to ER as needed. Please start protecting yourself while having sex with condoms. Consider following up with health department for more workup. Please notify your partner. Scripts Cephalexin (KEFLEX) 500 Mg Capsule 1 CAP PO BID for 7 Days, #14 CAP Prov: ALLYSON HINKLE APRN 12/14/18 Problem Qualifiers Additional Impression: Urinary tract infection Urinary tract infection type: acute cystitis Hematuria presence: without hematuria Qualified Codes: N30.00 - Acute cystitis without hematuria ALLYSON HINKLE APRN Dec 14, 2018 22:50
[2018-12-14] MEDS ORDERED: AZITHROMYCIN 250 MG TABLET. PO ONE (23:00)
[2018-12-14] MEDS ORDERED: cefTRIAXone IM 250 MG VIAL IM ONE (23:00)
== END 2018-12-14 23:15 | disposition home or self-care (01) ==
LOC: ER 21:16
DX: N30.00 Acute cystitis without hematuria (principal); R36.9 Urethral discharge, unspecified; J44.9 Chronic obstructive pulmonary disease, unspecified; Z86.79 Personal history of other diseases of the circulatory system; Z88.5 Allergy status to narcotic agent
CPT/HCPCS: 81001; 87086; 87491; 87591; 96372; 99284; J0696; Q0144

== ENCOUNTER 2018-12-19 19:16 | Emergency (ER) | payer MEDICARE, OTHER ==
[~2018-12-19] VITALS: Ht 182.9 cm; Wt 104.3 kg
[~2018-12-19 19:16] MED LIST changes: +CEPH-264 PO
[2018-12-19 19:42] LABS: BILIRUBIN,URINE NEGATIVE (NEG); CLARITY,URINE CLEAR; COLOR,URINE YELLOW; NITRITE,URINE NEGATIVE (NEG); PROTEIN,URINE NEGATIVE (NEG-TRACE)
[2018-12-19] MEDS ORDERED: cefTRIAXone IM 250 MG VIAL IM ONE (19:45)
[2018-12-19] MEDS ORDERED: AZITHROMYCIN 250 MG TABLET. PO ONE (19:45)
[2018-12-19 19:48] LABS: BACTERIA,URINE 0 /HPF (0-FEW); SQUAMOUS EPITHELIAL CELL,UR FEW /LPF; WBC,URINE >40 /HPF (0-4)
--- NOTE | 2018-12-19 19:57 | PHYS DOC ---
Past Medical History Past Medical History: Cancer, CHF, COPD, Other Additional Past Medical Histor: seasonal allergies, PROSTATE CANCER, RESP FAILURE Past Surgical History: Other Additional Past Surgical Histo: craniotomy,hemorrhoidectomy,L knee, scar tissur removed throat/neck,back Alcohol Use: Occasionally Drug Use: Cocaine, Other Adult General Chief Complaint Chief Complaint: URINARY FREQUENCY HPI HPI Patient is a 68-year-old male who presents with complaint of symptoms of her nares tract infection. Patient states he was seen by his primary provider about a week ago and was started on Cipro. Patient indicates symptoms had improved for about 4 days but then returned. He states that he also has a penile discharge and has had that since onset of symptoms with the exception of the asymptomatic period of time.[] Review of Systems Review of Systems Constitutional: Denies fever or chills [] Respiratory: Denies cough or shortness of breath [] Cardiovascular: No additional information not addressed in HPI [] GI: Denies abdominal pain, nausea, vomiting or diarrhea [] : Complains of dysuria and penile discharge[] Musculoskeletal: Denies back pain or joint pain [] Current Medications Current Medications Current Medications Medications (Trade) Dose Ordered Sig/Rohit Start Time Stop Time Status Last Admin Dose Admin Azithromycin (Zithromax) 1,000 mg 1X ONCE 12/19/18 19:45 12/19/18 19:47 DC 12/19/18 19:46 1,000 MG Ceftriaxone Sodium (Rocephin Im) 500 mg 1X ONCE 12/19/18 19:45 12/19/18 19:47 DC 12/19/18 19:46 500 MG Allergies Allergies Allergies Coded Allergies Type Severity Reaction Last Updated Verified codeine Allergy Intermediate "i dont know they just tell me that" 04/03/15 Yes Physical Exam Physical Exam Constitutional: Well developed, well nourished, no acute distress, non-toxic appearance. [] Neck: Normal range of motion, no tenderness, supple, no stridor. [] Cardiovascular:Heart rate regular rhythm, no murmur [] Lungs & Thorax: Bilateral breath sounds clear to auscultation [] Abdomen: Bowel sounds normal, soft, no tenderness. [] Skin: Warm, dry, no erythema, no rash. [] : There is a purulent penile discharge present. [] Current Patient Data Vital Signs Vital Signs Date Time Temp Pulse Resp B/P (MAP) Pulse Ox O2 Delivery O2 Flow Rate FiO2 12/19/18 19:24 97.9 75 20 140/84 (102) 97 Room Air 97.9 Lab Values Laboratory Tests Test 12/19/18 19:34 Urine Collection Type Unknown Urine Color Yellow Urine Clarity Clear Urine pH 5.0 Urine Specific [place] 1.015 Urine Protein Negative mg/dL (NEG-TRACE) Urine Glucose (UA) Negative mg/dL (NEG) Urine Ketones (Stick) Negative mg/dL (NEG) Urine Blood Small (NEG) Urine Nitrite Negative (NEG) Urine Bilirubin Negative (NEG) Urine Urobilinogen Dipstick 1.0 mg/dL (0.2 mg/dL) Urine Leukocyte Esterase Large (NEG) Urine RBC 6-10 /HPF (0-2) Urine WBC >40 /HPF (0-4) Urine Squamous Epithelial Cells Few /LPF Urine Transitional Epithelial Cells Few /LPF Urine Renal Epithelial Cells Occ /LPF Urine Bacteria 0 /HPF (0-FEW) Urine Mucus Slight /LPF EKG EKG [] Radiology/Procedures Radiology/Procedures [] Course & Med Decision Making Course & Med Decision Making Pertinent Labs and Imaging studies reviewed. (See chart for details) [] Dragon Disclaimer Dragon Disclaimer This electronic medical record was generated, in whole or in part, using a voice recognition dictation system. Departure Departure Impression: Primary Impression: Sexually transmitted disease Disposition: 01 HOME, SELF-CARE Condition: STABLE Referrals: ROGER JENKINS MD (PCP) Patient Instructions: Sexually Transmitted Disease Scripts Metronidazole (FLAGYL) 500 Mg Tablet 1 TAB PO BID, #14 TAB Prov: ATUL BOYD Jr. DO 12/19/18 ATUL BOYD Jr. DO Dec 19, 2018 19:57
[2018-12-19] MEDS ORDERED: METR500T PO (19:59)
[2018-12-19 20:00] VITALS: BP 136/77
== END 2018-12-19 20:25 | disposition home or self-care (01) ==
LOC: ER 19:16
DX: A64 Unspecified sexually transmitted disease (principal); J44.9 Chronic obstructive pulmonary disease, unspecified; Z86.79 Personal history of other diseases of the circulatory system; Z88.5 Allergy status to narcotic agent; Z85.46 Personal history of malignant neoplasm of prostate
CPT/HCPCS: 81001; 87086; 87491; 87591; 96372; 99284; J0696; Q0144

== ENCOUNTER 2019-01-23 15:54 | Emergency (ER) | payer MEDICARE, OTHER ==
[~2019-01-23] VITALS: Ht 172.7 cm; Wt 104.3 kg
[~2019-01-23 15:54] MED LIST changes: +MONT10TA49 PO; -MONT10TA6 PO
[2019-01-23] MEDS ORDERED: IV NORMAL SALINE 1000ML BAG 1,000 ML IV ONE (16:15)
[2019-01-23] MEDS ORDERED: ONDANSETRON PF 4 MG/2 ML VIAL. IV ONE (16:15)
[2019-01-23 16:23] LABS: BASO % 1 % (0-3); EOS % 1 % (0-3); HEMATOCRIT 42.4 % (39.0-53.0); HEMOGLOBIN 14.5 g/dL (13.0-17.5); LYMPH # 1.1 x10^3/uL (1.0-4.8); LYMPH % 13 % (24-48); MEAN CORPUSCULAR HEMOGLOBIN 30 pg (25-35); MEAN CORPUSCULAR HGB CONC 34 g/dL (31-37); MEAN CORPUSCULAR VOLUME 89 fL (79-100); MONO # 0.6 x10^3/uL (0.0-1.1); MONO % 7 % (0-9); NEUT # 6.6 x10^3/uL (1.8-7.7); NEUT % 80 % (31-73); PLATELET COUNT 259 x10^3/uL (140-400); RED BLOOD COUNT 4.77 x10^6/uL (4.30-5.70); RED CELL DISTRIBUTION WIDTH 14.7 % (11.5-14.5); WHITE BLOOD COUNT 8.3 x10^3/uL (4.0-11.0)
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
--- NOTE | 2019-01-23 16:34 | RAD ---
Chest, PA and Lateral: Technique: PA and lateral views of the chest were obtained. History: Shortness of breath, syncope. Comparison: 09/04/2016. Findings: The heart size grossly appears unremarkable. Mild bibasilar lung airspace opacity likely atelectasis or infiltrates. Mild degenerative changes thoracic spine IMPRESSION: Mild bibasilar lung airspace opacities likely atelectasis or infiltrates. Electronically signed by: El Wilson MD (01/23/2019 4:32 PM) [facility]
[2019-01-23 16:37] LABS: CALCIUM 8.9 mg/dL (8.5-10.1); CREATININE 1.1 mg/dL (0.7-1.3); GFR 80.1; POTASSIUM 3.8 mmol/L (3.5-5.1)
[2019-01-23 16:42] LABS: BILIRUBIN,URINE NEGATIVE (NEG); CLARITY,URINE CLEAR; COLOR,URINE YELLOW; NITRITE,URINE NEGATIVE (NEG); PROTEIN,URINE NEGATIVE (NEG-TRACE)
[2019-01-23 16:43] LABS: ALBUMIN 3.9 g/dL (3.4-5.0); MAGNESIUM 1.7 mg/dL (1.8-2.4); TOTAL BILIRUBIN 0.6 mg/dL (0.2-1.0)
[2019-01-23 16:47] LABS: BACTERIA,URINE 0 /HPF (0-FEW); BARBITURATES NEG (NEG); BENZODIAZEPINES NEG (NEG); CANNABINOIDS NEG (NEG); COCAINE POS (NEG); METHADONE NEG (NEG); OPIATES NEG (NEG); PHENCYCLIDINE NEG (NEG); RBC,URINE 0 /HPF (0-2); SQUAMOUS EPITHELIAL CELL,UR FEW /LPF; WBC,URINE 0 /HPF (0-4)
[2019-01-23 16:48] LABS: AMPHETAMINE/METHAMPHETAMINE NEG (NEG)
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
[2019-01-23] MEDS ORDERED: IV NORMAL SALINE 500ML BAG 500 ML IV ONE (17:15)
[2019-01-23] MEDS ORDERED: MAGNESIUM SULFATE 1GM 100 ML IV ONE (17:30)
[2019-01-23] MEDS ORDERED: IOHEXOL 350 MG/ML 100 ML VIAL. IV ONE (17:30)
[2019-01-23] MEDS ORDERED: CONTRAST GIVEN. MC PRN (17:30)
--- NOTE | 2019-01-23 18:09 | RAD ---
CTA Chest with contrast: Clinical History: Elevated d-dimer Shortness of breath. Axial helical images of the chest were obtained after the administration of 100 cc of IV Omni 350 and timed appropriately for a pulmonary arterial study. Conventional axial reconstruction was performed in addition to coronal, sagittal and bilateral oblique MIP (maximum intensity projection). This study was ordered to detect possible pulmonary embolism. There are no filling defects to suggest pulmonary embolism. The more peripheral subsegmental pulmonary arteries are not well opacified limiting our sensitivity for small peripheral pulmonary emboli. There is patchy opacity in the right middle lobe there is multiple small hilar lymph nodes bilaterally. The thoracic aorta appears normal. Impression: 1. No evidence of pulmonary embolism. 2. Patchy opacity right middle lobe could be discoid atelectasis or scar. 3. Mild hilar lymphadenopathy bilaterally likely reactive. PQRS Compliance Statement: One or more of the following individualized dose reduction techniques were utilized for this examination: 1. Automated exposure control 2. Adjustment of the mA and/or kV according to patient size 3. Use of iterative reconstruction technique Electronically signed by: Bernabe Domingo III, MD (01/23/2019 6:06 PM) [facility]
[2019-01-23 18:26] VITALS: BP 149/71
--- NOTE | 2019-01-24 06:01 | EKG ---
[facility] [address] [place] [address] Test Date: 2019-01-23 Test Time: 16:05:49 Pat Name: JOZEF CARDOZA Department: Room: Gender: M [employer]bler: : 1950 Requested By: ALLYSON HINKLE Order Number: [id number] Reading MD: Measurements Intervals [place] Rate: 90 P: 39 IN: 214 QRS: 21 QRSD: 84 T: 32 QT: 372 QTc: 459 Interpretive Statements SINUS RHYTHM PROLONGED IN INTERVAL ABNORMAL ECG RI6.01 No previous ECG available for comparison
== END 2019-01-23 18:38 | disposition home or self-care (01) ==
LOC: ER 15:54
DX: F19.10 Other psychoactive substance abuse, uncomplicated (principal); E86.0 Dehydration; R51 Headache; R55 Syncope and collapse; R06.02 Shortness of breath; R79.1 Abnormal coagulation profile; J44.9 Chronic obstructive pulmonary disease, unspecified; F17.210 Nicotine dependence, cigarettes, uncomplicated; Z86.79 Personal history of other diseases of the circulatory system; Z88.5 Allergy status to narcotic agent
CPT/HCPCS: 36415; 70450; 71046; 71275; 80053; 80307; 81001; 82550; 82962; 83690; 83735; 83880; 84484; 85025; 85379; 93005; 96361; 96365; 96375; 99285; G0480; J2405; J3475; J7030; J7040; Q9967

== ENCOUNTER 2020-04-21 11:33 | Inpatient (IN) | payer OTHER, MEDICARE ==
[~2020-04-21] VITALS: Ht 180.3 cm; Wt 95.4 kg
[~2020-04-21 11:33] MED LIST changes: +ACET325T9 PO; +AZIT500T4 PO; -CETI10TA22 PO; +CETI10TA74 PO; +GUAI5SYR PO
[2020-04-21] MEDS ORDERED: ASPIRIN 325 MG TABLET PO ONE (11:45)
[2020-04-21] MEDS ORDERED: NITROGLYCERIN SUBLINGUAL 0.4 MG BOTTLE OF 25. SL PRN (11:45)
[2020-04-21] MEDS ORDERED: IV NORMAL SALINE 1000ML BAG 1,000 ML IV ONE (11:45)
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
[2020-04-21 12:13] LABS: BARBITURATES NEG (NEG); BENZODIAZEPINES NEG (NEG); CANNABINOIDS NEG (NEG); COCAINE POS (NEG); METHADONE NEG (NEG); OPIATES NEG (NEG); PHENCYCLIDINE NEG (NEG)
[2020-04-21 12:23] LABS: BILIRUBIN,URINE NEGATIVE (NEG); CLARITY,URINE CLEAR; COLOR,URINE YELLOW; NITRITE,URINE NEGATIVE (NEG); PH,URINE 6.5 (<5.0-8.0); PROTEIN,URINE NEGATIVE (NEG-TRACE)
[2020-04-21 12:27] LABS: BASO # 0.1 x10^3/uL (0.0-0.2); BASO % 1 % (0-3); EOS # 0.1 x10^3/uL (0.0-0.7); EOS % 1 % (0-3); HEMATOCRIT 43.3 % (39.0-53.0); HEMOGLOBIN 14.9 g/dL (13.0-17.5); LYMPH # 1.2 x10^3/uL (1.0-4.8); LYMPH % 21 % (24-48); MEAN CORPUSCULAR HEMOGLOBIN 31 pg (25-35); MEAN CORPUSCULAR HGB CONC 34 g/dL (31-37); MEAN CORPUSCULAR VOLUME 90 fL (79-100); MONO # 0.5 x10^3/uL (0.0-1.1); MONO % 8 % (0-9); NEUT # 4.1 x10^3/uL (1.8-7.7); NEUT % 69 % (31-73); PLATELET COUNT 298 x10^3/uL (140-400); RED BLOOD COUNT 4.84 x10^6/uL (4.30-5.70); RED CELL DISTRIBUTION WIDTH 14.9 % (11.5-14.5); WHITE BLOOD COUNT 5.9 x10^3/uL (4.0-11.0)
[2020-04-21 12:38] LABS: BACTERIA,URINE FEW /HPF (0-FEW); RBC,URINE 0 /HPF (0-2); WBC,URINE OCC /HPF (0-4)
[2020-04-21 12:40] LABS: PROTHROMBIN TIME PATIENT 13.4 SEC (11.7-14.0)
[2020-04-21 12:44] LABS: AMPHETAMINE/METHAMPHETAMINE NEG (NEG)
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
[2020-04-21 12:50] LABS: CALCIUM 8.7 mg/dL (8.5-10.1); GFR 88.9; POTASSIUM 3.5 mmol/L (3.5-5.1)
[2020-04-21 13:02] LABS: ALBUMIN 3.7 g/dL (3.4-5.0); ALBUMIN/GLOBULIN RATIO 0.9 (1.0-1.7); TOTAL BILIRUBIN 0.6 mg/dL (0.2-1.0); TOTAL PROTEIN 7.9 g/dL (6.4-8.2)
--- NOTE | 2020-04-21 13:11 | RAD ---
PORTABLE CHEST 1V INDICATION: chest pain COMPARISON STUDY: 10/10/2019. FINDINGS: Lungs: Normal lung volume. No focal airspace disease. Normal pulmonary vasculature. Pleura: No pleural effusion or pneumothorax. Heart and Mediastinum: Normal cardiomediastinal silhouette. Tortuous thoracic aorta. IMPRESSION: No focal airspace disease. Electronically signed by: Tom Clements MD (04/21/2020 1:09 PM) [id number]
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
[2020-04-21] MEDS ORDERED: DOCUSATE SODIUM 100 MG CAPSULE. PO PRN (17:30)
[2020-04-21] MEDS ORDERED: ONDANSETRON PF 4 MG/2 ML VIAL. IVP PRN (17:30)
[2020-04-21] MEDS ORDERED: POTASSIUM CHLORIDE 10MEQ 100 ML IV PRN (17:30)
[2020-04-21] MEDS ORDERED: SENNOSIDES 8.6 MG TABLET PO PRN (17:30)
[2020-04-21] MEDS ORDERED: MAGNESIUM SULFATE 2GM 50 ML IV SCH (17:30)
[2020-04-21] MEDS ORDERED: POTASSIUM CHLORIDE 10MEQ 100 ML IV SCH (17:30)
[2020-04-21] MEDS ORDERED: DEXTROSE 50% 25 GM / 50ML DISP.SYRIN. IV PRN (17:30)
[2020-04-21] MEDS ORDERED: ELECTROLYTE (NON-ICU) PROTOCOL MC PRN (17:30)
[2020-04-21] MEDS ORDERED: POTASSIUM CHLORIDE 20 MEQ TABLET.ER. PO PRN (17:30)
[2020-04-21] MEDS ORDERED: hydrALAZINE 25 MG TABLET PO PRN (18:00)
[2020-04-21] MEDS: ENOXAPARIN 40 MG/0.4 ML SYRINGE. SQ SCH (18:36)
[2020-04-21 19:30] VITALS: BP 122/66
[2020-04-21] MEDS ORDERED: MAGNESIUM OXIDE 400 MG TABLET PO SCH (21:00)
[2020-04-21 23:35] VITALS: BP 121/62
[2020-04-22 03:53] LABS: BASO # 0.1 x10^3/uL (0.0-0.2); BASO % 1 % (0-3); EOS # 0.4 x10^3/uL (0.0-0.7); EOS % 8 % (0-3); HEMATOCRIT 42.7 % (39.0-53.0); HEMOGLOBIN 14.5 g/dL (13.0-17.5); LYMPH # 2.1 x10^3/uL (1.0-4.8); LYMPH % 41 % (24-48); MEAN CORPUSCULAR HEMOGLOBIN 31 pg (25-35); MEAN CORPUSCULAR HGB CONC 34 g/dL (31-37); MEAN CORPUSCULAR VOLUME 90 fL (79-100); MONO # 0.4 x10^3/uL (0.0-1.1); MONO % 9 % (0-9); NEUT # 2.1 x10^3/uL (1.8-7.7); NEUT % 41 % (31-73); PLATELET COUNT 270 x10^3/uL (140-400); RED BLOOD COUNT 4.74 x10^6/uL (4.30-5.70); RED CELL DISTRIBUTION WIDTH 15.2 % (11.5-14.5); WHITE BLOOD COUNT 5.1 x10^3/uL (4.0-11.0)
[2020-04-22 03:55] VITALS: BP 145/79
[2020-04-22 04:24] LABS: CALCIUM 8.4 mg/dL (8.5-10.1); GFR 88.9; MAGNESIUM 2.2 mg/dL (1.8-2.4); PHOSPHORUS 3.4 mg/dL (2.6-4.7); POTASSIUM 3.8 mmol/L (3.5-5.1)
[2020-04-22 07:00] VITALS: BP 122/81
[2020-04-22] MEDS: ASPIRIN ENTERIC COATED 81 MG TABLET.DR. PO SCH (08:01)
[2020-04-22] MEDS ORDERED: FLU VACC QS 2020-21(6MOS+)/PF 0.5 ML SYRINGE. VAX IM ONE (09:00)
[2020-04-22 11:00] VITALS: BP 111/73
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
[2020-04-22 14:40] VITALS: BP 106/64
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
[2020-04-22] MEDS: ENOXAPARIN 40 MG/0.4 ML SYRINGE. SQ SCH (16:40)
[2020-04-22 19:35] VITALS: BP 118/58
[2020-04-22 23:00] VITALS: BP 117/73
[2020-04-23 03:00] VITALS: BP 104/65
[2020-04-23 07:00] VITALS: BP 108/64
[2020-04-23] MEDS: ASPIRIN ENTERIC COATED 81 MG TABLET.DR. PO SCH (08:06)
[2020-04-23 08:21] LABS: ALBUMIN 3.1 g/dL (3.4-5.0); DIRECT BILIRUBIN 0.1 mg/dL (0.0-0.2); TOTAL BILIRUBIN 0.4 mg/dL (0.2-1.0); TOTAL PROTEIN 6.8 g/dL (6.4-8.2)
[2020-04-23 08:24] LABS: CHOLESTEROL/HDL RATIO 3.3
[2020-04-23 11:00] VITALS: BP 109/68
--- NOTE | 2020-04-23 11:14 | NUR ---
SS following for discharge planning. SS reviewed pt chart and discussed with pt RN. Pt is from home and is currently on room air. Cardiology consulted. ECHO ordered. PT/OT recommended home independent. SS will continue to follow for discharge planning.
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
--- NOTE | 2020-04-23 12:27 | PDOC ---
YOUNG GOLD KISHAN 04/23/20 1227: CARDIO Progress Notes Date and Time Date of Service 04/23/20 Time of Evaluation 1220 Subjective Subjective: No Chest Pain, No shortness of breath, No Palpitations Vitals Vitals Vital Signs Date Time Temp Pulse Resp B/P (MAP) Pulse Ox O2 Delivery O2 Flow Rate FiO2 04/23/20 11:00 97.9 69 18 109/68 (82) 98 Room Air 97.9 Weight Weight [ ] Input and Output Intake and Output Intake and Output 04/23/20 07:00 Intake Total 2220 ml Output Total 400 ml Balance 1820 ml Intake Oral 2220 ml Output Urine Total 400 ml # Voids 1 Laboratory Labs Laboratory Tests Test 04/23/20 07:50 Total Bilirubin 0.4 mg/dL (0.2-1.0) Direct Bilirubin 0.1 mg/dL (0.0-0.2) Aspartate Amino Transf (AST/SGOT) 16 U/L (15-37) Alanine Aminotransferase (ALT/SGPT) 18 U/L (16-63) Alkaline Phosphatase 115 U/L (46-116) Total Protein 6.8 g/dL (6.4-8.2) Albumin 3.1 g/dL (3.4-5.0) Triglycerides Level 29 mg/dL (0-150) Cholesterol Level 157 mg/dL (0-200) LDL Cholesterol, Calculated 104 mg/dL (0-100) VLDL Cholesterol, Calculated 6 mg/dL (0-40) Non-HDL Cholesterol Calculated 110 mg/dL (0-129) HDL Cholesterol 47 mg/dL (40-60) Cholesterol/HDL Ratio 3.3 Physical Exam HEENT: Neck Supple W Full Motion Chest: Symmetric LUNGS: Clear to Auscultation Heart: RRR Extremities: No Edema Neurology: alert, oriented, follow commands Assessment Assessment 1. Chest pain, mixed features. AMI ruled out. EKG without significant acute changes. Echo with preserved LV systolic function 2. CAD; mild, non-obstructive disease per cath 2014 3. Hyperlipidemia; LDL 104 4. Prostate cancer; s/p radiation treatment. 5. Substance abuse; EDS + cocaine Recommendations Secondary prevention measures Cessation from recreational drug use Will arrange outpatient ischemic evaluation May 29 at 1:45pm Justicifation of Admission Dx: Justifications for Admission: Justification of Admission Dx: Yes CHF: Cardiac Arrhythmias JANY DOWD MD 04/23/20 1641: CARDIO Progress Notes Assessment Assessment Patient seen and examined Chest pain, mixed features. AMI ruled out. EKG without significant acute changes. Echo with preserved LV systolic function CAD; mild, non-obstructive disease per cath 2014. No acute IN. Intact LV function. Outpatient work-up. Hyperlipidemia; LDL 104 Prostate cancer; s/p radiation treatment. Substance abuse; EDS + cocaine YOUNG GOLD APRN Apr 23, 2020 12:27 JANY DOWD MD Apr 23, 2020 16:41
[2020-04-23 15:00] VITALS: BP 128/77
--- NOTE | 2020-04-23 15:30 | CARD ---
MR#: [id number] Date of Study: 04/23/2020 Ordering Physician: JANY LOWRY, Referring Physician: JANY LOWRY, Tech: Chandrika Carson FRANCES[place] APPROVED REPORT EXAM: Two-dimensional and M-mode echocardiogram with Doppler and color Doppler. Other Information Quality : Good INDICATION Cardiac Disease: Chest Pain 2D DIMENSIONS Left Atrium(2D)3.6 (1.6-4.0cm)IVSd0.9 (0.7-1.1cm) Aortic Root(2D)2.7 (2.0-3.7cm)LVDd5.1 (3.9-5.9cm) LVOT Diameter2.2 (1.8-2.4cm)PWd0.9 (0.7-1.1cm) LVDs2.3 (2.5-4.0cm)FS (%) 30.0 % SV107.4 mlLVEF(%)60.0 (>50%) Aortic Valve AoV Peak Fly.144.2cm/sAoV VTI25.9cm AO Peak GR.8.3mmHgLVOT Peak Fly.121.5cm/s LVOT VTI 24.04cmAO Mean GR.4mmHg NIDA (VMAX)3.52bw8SVG (VTI)3.54cm2 Mitral Valve MV E Grqdelzk17.1cm/sMV DECEL ANUC164sh MV A Efrhoanf20.2cm/sMV SOQ23hr E/A Ratio1.1MVA (PHT)3.16cm2 TDI E/Lateral E'5.6E/Medial E'8.5 Tricuspid Valve TR P. Nryyaaaq067wr/sRAP OFBKNPKF3teKw TR Peak Gr.77hoQgAGJC37kmTo Pulmonary Vein S1 Kkrntbqx78.3cm/sD2 Hviehcwc41.3cm/s LEFT VENTRICLE The left ventricle is normal size. There is normal left ventricular wall thickness. The left ventricu lar systolic function is normal and the ejection fraction is within normal range. The Ejection Fracti on is 55-60%. There is normal LV segmental wall motion. Transmitral Doppler flow pattern is Grade I-a bnormal relaxation pattern. RIGHT VENTRICLE The right ventricle is normal size. The right ventricular systolic function is normal. ATRIA The left atrium size is normal. The right atrium size is normal. The interatrial septum is intact wit h no evidence for an atrial septal defect or patent foramen ovale as noted on 2-D or Doppler imaging. AORTIC VALVE The aortic valve is calcified but opens well. Doppler and Color Flow revealed no significant aortic r egurgitation. There is no significant aortic valvular stenosis. MITRAL VALVE The mitral valve is calcified but opens well. There is no evidence of mitral valve prolapse. There is no mitral valve stenosis. Doppler and Color-flow revealed trace to mild mitral regurgitation. TRICUSPID VALVE The tricuspid valve is normal in structure and function. Doppler and Color Flow revealed trace tricus pid regurgitation The PA pressure was estimated at 36 mmHg. There is no tricuspid valve stenosis. PULMONIC VALVE The pulmonic valve is not well visualized. Doppler and Color Flow revealed no pulmonic valvular regur gitation. There is no pulmonic valvular stenosis. GREAT VESSELS The aortic root is normal in size. The ascending aorta is not well seen. The IVC is normal in size an d collapses >50% with inspiration. PERICARDIAL EFFUSION There is no evidence of significant pericardial effusion. Critical Notification Critical Value: No <Conclusion> The left ventricle is normal size. The left ventricular systolic function is normal and the ejection fraction is within normal range. The Ejection Fraction is 55-60%. Doppler and Color Flow revealed no significant aortic regurgitation. There is no significant aortic valvular stenosis. Doppler and Color-flow revealed trace to mild mitral regurgitation. Doppler and Color Flow revealed trace tricuspid regurgitation The PA pressure was estimated at 36 mmHg. Signed by : Jany Lowry MD Electronically Approved : 04/23/2020 15:30:18
[2020-04-23] MEDS ORDERED: ASPI-886 PO (16:05)
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
--- NOTE | 2020-04-23 16:47 | NUR ---
discharge instructions discussed with patient. patient stable at time of discharge with no complaints of chest pain. patient informed to start taking daily aspirin. patient informed to follow up with pcp in 1-2 weeks. patients IV out and tele monitor off. patient escorted to girlfriends personal vehicle.
== END 2020-04-23 16:49 | disposition home or self-care (01) | DRG 918 ==
LOC: ER 11:33 → 2 NORTH 13:15
PROVIDERS: ADMIT Internal Medicine; ATTEND Internal Medicine
DX: T40.5X1A Poisoning by cocaine, accidental (unintentional), initial encounter (principal); J44.9 Chronic obstructive pulmonary disease, unspecified; I25.10 Atherosclerotic heart disease of native coronary artery without angina pectoris; G93.89 Other specified disorders of brain; M19.90 Unspecified osteoarthritis, unspecified site; K64.9 Unspecified hemorrhoids; I73.9 Peripheral vascular disease, unspecified; E78.5 Hyperlipidemia, unspecified; F12.90 Cannabis use, unspecified, uncomplicated; F14.10 Cocaine abuse, uncomplicated; Z87.891 Personal history of nicotine dependence; Z92.3 Personal history of irradiation; Z85.46 Personal history of malignant neoplasm of prostate; Z83.3 Family history of diabetes mellitus; Z82.5 Family history of asthma and other chronic lower respiratory diseases; Z82.49 Family history of ischemic heart disease and other diseases of the circulatory system; I25.2 Old myocardial infarction; Z87.01 Personal history of pneumonia (recurrent); Z88.5 Allergy status to narcotic agent; Y92.89 Other specified places as the place of occurrence of the external cause
CPT/HCPCS: 36415; 70450; 71045; 80048; 80053; 80061; 80076; 80307; 81001; 83690; 83735; 83880; 84100; 84484; 85025; 85610; 90471; 90686; 93306; 99285; J1650; 97530-GO; G0378

== ENCOUNTER 2021-09-08 10:09 | Emergency (ER) | payer OTHER, MEDICARE ==
[~2021-09-08] VITALS: Ht 182.9 cm; Wt 104.5 kg
[~2021-09-08 10:09] MED LIST changes: +ASPI-886 PO
[2021-09-08 10:16] VITALS: BP 121/79
--- NOTE | 2021-09-08 10:26 | PHYS DOC ---
Past Medical History Past Medical History: COPD Additional Past Medical Histor: seasonal allergies, PROSTATE CANCER, RESP FAILURE Past Surgical History: Other Additional Past Surgical Histo: Craniotomy, Hemmorhoidectomy Smoking Status: Former Smoker Alcohol Use: Occasionally Drug Use: Cocaine Adult General Chief Complaint Chief Complaint: ELBOW PROBLEM HPI HPI Patient is a 71 year old male with right elbow pain. 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 He said pain with flexion and extension since this occurred, injury occurred yesterday. He does not have any numbness, weakness or tingling distally. He has noticed some swelling over the elbow joint in addition to the pain with range of motion. No other injuries or complaints. Review of Systems Review of Systems Constitutional: Denies fever Eyes: Denies change in visual acuity or eye pain HENT: Denies sore throat Respiratory: Denies shortness of breath Cardiovascular: Denies chest pain GI: Denies abd pain : Denies dysuria Musculoskeletal: Denies back injury Integument: Denies rash or skin lesions Neurologic: Denies headache, focal weakness or sensory changes All other systems were reviewed and found to be within normal limits, except as documented in this note. Current Medications Current Medications Current Medications Medications (Trade) Dose Ordered Sig/Rohit Start Time Stop Time Status Last Admin Dose Admin Cyclobenzaprine HCl (Flexeril) 10 mg 1X ONCE 09/08/21 10:30 09/08/21 10:31 DC 09/08/21 10:30 10 MG Ketorolac Tromethamine (Toradol 30mg Vial) 15 mg 1X ONCE 09/08/21 10:30 09/08/21 10:31 DC 09/08/21 10:30 15 MG Allergies Allergies Allergies Coded Allergies Type Severity Reaction Last Updated Verified codeine Allergy Intermediate "i dont know they just tell me that" 09/08/21 Yes Physical Exam Physical Exam Constitutional: Well developed, well nourished, no acute distress, non-toxic appearance. HENT: Normocephalic, atraumatic, bilateral external ears normal, mucosa moist, nose normal. Eyes: EOMI, conjunctiva normal, no discharge. Neck: Normal range of motion, supple, no stridor, no meningeal signs. Cardiovascular: Regular rate and rhythm Lungs & Thorax: Bilateral breath sounds clear to auscultation Abdomen: Soft, no tenderness or obvious masses Skin: Warm, dry, no erythema, no rash. Extremities: No tenderness, no cyanosis, no clubbing, ROM intact, 3 cm area of swelling directly over the olecranon of the right elbow. No warmth or erythema. There is a degree of tenderness associated with the swelling. Neurologic: Alert and oriented, normal motor function, normal sensory function, no focal deficits noted. Psychologic: Affect normal, judgement normal, mood normal. Current Patient Data Vital Signs Vital Signs Date Time Temp Pulse Resp B/P (MAP) Pulse Ox O2 Delivery O2 Flow Rate FiO2 09/08/21 10:16 97.3 61 18 121/79 (93) 97 Room Air 97.3 EKG EKG [] Radiology/Procedures Radiology/Procedures [] Impressions: 2 views of the right elbow is negative for fracture, subluxation or dislocation per my preliminary dictation. Course & Med Decision Making Course & Med Decision Making Pertinent Labs and Imaging studies reviewed. (See chart for details) [] Dragon Disclaimer Dragon Disclaimer This electronic medical record was generated, in whole or in part, using a voice recognition dictation system. Departure Departure Impression: Primary Impression: Contusion of elbow, right Disposition: HOME / SELF CARE / HOMELESS Condition: STABLE Referrals: ROGER JENKINS MD (PCP) Patient Instructions: Elbow Contusion Scripts Ketorolac Tromethamine (KETOROLAC TROMETHAMINE) 10 Mg Tablet 1 TAB PO TID for Pain, #10 TAB Prov: NELLIE CALDERON MD 09/08/21 Cyclobenzaprine Hcl (CYCLOBENZAPRINE HCL) 5 Mg Tablet 5 MG PO PRN TID PRN for PAIN, #15 TAB Prov: NELLIE CALDERON MD 09/08/21 NELLIE CALDERON MD Sep 08, 2021 10:26
[2021-09-08] MEDS ORDERED: KETOROLAC 30 MG/ML VIAL. IM ONE (10:30)
[2021-09-08] MEDS ORDERED: CYCLOBENZAPRINE 10 MG TABLET. PO ONE (10:30)
--- NOTE | 2021-09-08 10:43 | RAD ---
EXAMINATION: XR ELBOW_RIGHT CLINICAL HISTORY: Right elbow pain. TECHNIQUE: XR ELBOW_RIGHT Number of Images/Views: 2 COMPARISON: None FINDINGS: Mild degenerative changes. No acute fracture. Prominent posterior olecranon enthesophyte. Soft tissue swelling and increased subcutaneous density along the posterior elbow. Nonspecific tiny curvilinear subcutaneous density also present in this region. IMPRESSION: Findings compatible with olecranon bursitis. Nonspecific tiny subcutaneous density in this region may reflect some degree of chronicity, correlate clinically. Electronically signed by: Dirk Bacon DO (09/08/2021 10:41 AM) [facility]
[2021-09-08] MEDS ORDERED: KETO10TA PO (10:47)
[2021-09-08] MEDS ORDERED: CYCL5TAB PO (10:47)
[2021-09-09] MEDS ORDERED: HYDR-2761 PO (07:50)
== END 2021-09-08 10:57 | disposition home or self-care (01) ==
LOC: ER 10:09
DX: S50.01XA Contusion of right elbow, initial encounter (principal); J44.9 Chronic obstructive pulmonary disease, unspecified; Z87.891 Personal history of nicotine dependence; Z88.5 Allergy status to narcotic agent; W22.8XXA Striking against or struck by other objects, initial encounter; Y93.89 Activity, other specified; Y92.89 Other specified places as the place of occurrence of the external cause; Y99.8 Other external cause status
CPT/HCPCS: 73070; 96372; 99283; J1885

== ENCOUNTER 2021-09-09 04:52 | Emergency (ER) | payer OTHER, MEDICARE ==
[~2021-09-09] VITALS: Ht 182.9 cm; Wt 106.5 kg
[~2021-09-09 04:52] MED LIST changes: +CYCL5TAB PO; +KETO10TA PO
[2021-09-09] MEDS ORDERED: DEXAMETHASONE SOD PHOS 20 MG/5 ML VIAL. IM ONE (07:15)
[2021-09-09] MEDS ORDERED: KETOROLAC 30 MG/ML VIAL. IM ONE (07:15)
[2021-09-09] MEDS ORDERED: LIDOCAINE 1% PF 2 ML VIAL. INJ ONE (07:15)
--- NOTE | 2021-09-09 07:16 | PHYS DOC ---
Past Medical History Past Medical History: COPD Additional Past Medical Histor: seasonal allergies, PROSTATE CANCER, RESP FAILURE Past Surgical History: Other Additional Past Surgical Histo: Craniotomy, Hemmorhoidectomy, LIGAMENT REPAIR Smoking Status: Never Smoker Alcohol Use: Occasionally Drug Use: Cocaine Adult General Chief Complaint Chief Complaint: ELBOW PROBLEM HPI HPI Patient is a 71 year old male with right elbow pain for the last 3 days. 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 He has had pain and swelling since. Actually seen him yesterday in the emergency department and started him on anti-inflammatory medications but this does not seem to be helping. He had an x-ray performed at that time which was negative as well. Patient has not had any fever, increasing swelling, numbness or weakness. No new injuries or complaints. Review of Systems Review of Systems Constitutional: Denies fever Eyes: Denies change in visual acuity or eye pain HENT: Denies sore throat Respiratory: Denies shortness of breath Cardiovascular: Denies chest pain GI: Denies abd pain : Denies dysuria Musculoskeletal: Denies back or other extremity injury Integument: Denies rash or skin lesions Neurologic: Denies headache, focal weakness or sensory changes All other systems were reviewed and found to be within normal limits, except as documented in this note. Current Medications Current Medications Current Medications Medications (Trade) Dose Ordered Sig/Rohit Start Time Stop Time Status Last Admin Dose Admin Dexamethasone Sodium Phosphate (Decadron) 10 mg 1X ONCE 09/09/21 07:15 09/09/21 07:16 UNV Ketorolac Tromethamine (Toradol 30mg Vial) 30 mg 1X ONCE 09/09/21 07:15 09/09/21 07:16 UNV Lidocaine HCl (Xylocaine-Mpf 1% 2ml Vial) 2 ml 1X ONCE 09/09/21 07:15 09/09/21 07:17 DC 09/09/21 07:29 2 ML Allergies Allergies Allergies Coded Allergies Type Severity Reaction Last Updated Verified codeine Allergy Intermediate "i dont know they just tell me that" 09/08/21 Yes Physical Exam Physical Exam Constitutional: Well developed, well nourished, no acute distress, non-toxic appearance. HENT: Normocephalic, atraumatic, bilateral external ears normal, mucosa moist, nose normal. Eyes: EOMI, conjunctiva normal, no discharge. Neck: Normal range of motion, supple, no stridor, no meningeal signs. Cardiovascular: Regular rate and rhythm Lungs & Thorax: Bilateral breath sounds clear to auscultation Abdomen: Soft, no tenderness or obvious masses Skin: Warm, dry, no erythema, no rash. Extremities: Tenderness over right olecranon with palpable area of fluctuance overlying the olecranon process, no cyanosis, no clubbing, ROM intact, no edema. Neurologic: Alert and oriented, normal motor function, normal sensory function, no focal deficits noted. Psychologic: Affect normal, judgement normal, mood normal. Current Patient Data Vital Signs Vital Signs Date Time Temp Pulse Resp B/P (MAP) Pulse Ox O2 Delivery O2 Flow Rate FiO2 09/09/21 07:09 80 17 151/95 (113) 98 Room Air 09/09/21 05:00 97.5 97.5 EKG EKG [] Radiology/Procedures Radiology/Procedures [] Course & Med Decision Making Course & Med Decision Making Pertinent Labs and Imaging studies reviewed. (See chart for details) [] This is a 71-year-old male with bursitis of the right elbow. The patient was seen yesterday but is back today secondary to increased pain. The area was aspirated and the fluid sent for analysis. On visualization this was straw- colored without any purulence, will hold off on antibiotics for now as this is unlikely to be infectious. We will give him prescription for 8 [place] tablets to be used as needed, he is stable for discharge. Dragon Disclaimer Dragon Disclaimer This electronic medical record was generated, in whole or in part, using a voice recognition dictation system. Departure Departure Impression: Primary Impression: Bursitis Disposition: 01 HOME / SELF CARE / HOMELESS Condition: STABLE Referrals: ROGER JENKINS MD (PCP) Patient Instructions: Bursitis Scripts Hydrocodone Bit/Acetaminophen (HYDROCODONE-APAP 5-325 ) 1 Tab Tablet 1 TAB PO PRN Q6HRS PRN for PAIN, #8 TAB 0 Refills Prov: NELLIE CALDERON MD 09/09/21 NELLIE CALDERON MD Sep 09, 2021 07:16
[2021-09-09] MEDS ORDERED: HYDR-2761 PO (07:50)
[2021-09-09 08:12] VITALS: BP 150/80
[2021-09-09 09:47] LABS: BF CLARITY CLOUDY; BF COLOR YELLOW; BF SOURCE SYNOVIAL
[2021-09-09 09:48] LABS: BF MON % 18 %; BF PMN % 82 %
== END 2021-09-09 08:18 | disposition home or self-care (01) ==
LOC: ER 04:52
DX: M70.31 Other bursitis of elbow, right elbow (principal); Y93.89 Activity, other specified; J44.9 Chronic obstructive pulmonary disease, unspecified; Z88.5 Allergy status to narcotic agent
CPT/HCPCS: 87075; 89050; 99283; J3490; 87186